=== PATIENT | female | born 1945 | race Caucasian/White ===

== ENCOUNTER 2022-04-09 09:37 | Inpatient (IN) | payer OTHER ==
[~2022-04-09] VITALS: Ht 157.5 cm; Wt 38.5 kg
[2022-04-09 10:03] LABS: BASOPHILS ABSOLUTE AUTO 0.05 K/mm3 (0.00-0.23); BASOPHILS PERCENT AUTO 0 % (0-2); EOSINOPHILS ABSOLUTE AUTO 0.04 K/mm3 (0.00-0.68); EOSINOPHILS PERCENT AUTO 0 % (0-6); Hematocrit 41.9 % (33.0-51.0); IMMATURE GRAN PERCENT AUTO 1 % (0-1); LYMPHOCYTES ABSOLUTE AUTO 1.52 K/mm3 (0.84-5.20); LYMPHOCYTES PERCENT AUTO 9 % (21-46); MONOCYTES ABSOLUTE AUTO 0.99 K/mm3 (0.16-1.47); MONOCYTES PERCENT AUTO 6 % (4-13); Mean Corpuscular HGB 31.3 pg (26.0-34.0); Mean Corpuscular HGB Conc 33.4 g/dL (31.5-36.5); Mean Corpuscular Volume 94 fL (80-100); Mean Platelet Volume 9.9 fL (9.1-12.4); NEUTROPHILS ABSOLUTE AUTO 13.74 K/mm3 (1.96-9.15); NEUTROPHILS PERCENT AUTO 84 % (41-73); Platelet Count 326 K/mm3 (150-400); RDW Coefficient Variation 11.9 % (11.7-14.2); RDW Standard Deviation 41.1 fL (35.1-46.3); Red Blood Cell Count 4.48 M/mm3 (3.80-5.20); White Blood Cell Count 16.44 K/mm3 (4.00-11.30)
[2022-04-09] MEDS ORDERED: DULERA 200 MCG-13 GM INH (10:15)
[2022-04-09] MEDS ORDERED: ROSUVASTATIN CAL5 MG PO (10:16)
[2022-04-09] MEDS ORDERED: MIRT15ST PO (10:16)
[2022-04-09] MEDS ORDERED: SPIRIVA RESPIMAT4 G3 INH (10:16)
[2022-04-09] MEDS ORDERED: COMBIVENT RESPIM4 G1 INH (10:17)
[2022-04-09 10:22] LABS: PCO2 Arterial 66.4 mmHg (35-45); PO2 Arterial 225 mmHg (80-100); pH Blood Arterial 7.24 (7.35-7.45)
[2022-04-09 10:27] LABS: Albumin, Blood 3.2 g/dL (3.4-5.0); Albumin/Globulin Ratio 0.7 (0.8-1.8); Bilirubin, Total 0.4 mg/dL (0.1-1.0); Bun/Creatinine Ratio 45.6 (12.0-20.0); Calcium, Blood 8.4 mg/dL (8.5-10.1); Creatinine, Blood 0.35 mg/dL (0.40-1.00); Globulin, Blood 4.4 g/dL (2.2-4.0); Potassium, Blood 3.4 mmol/L (3.5-5.5); Total Protein, Blood 7.6 g/dL (6.4-8.2)
[2022-04-09 11:08] LABS: Influenza B, PCR NEGATIVE (NEGATIVE); Resp Syncytial Virus, PCR NEGATIVE (NEGATIVE); SARS-Cov-2 (COVID-19) PCR, MMC NEGATIVE (NEGATIVE)
[2022-04-09 11:11] LABS: Influenza A, PCR POSITIVE (NEGATIVE)
[2022-04-09] MEDS ORDERED: CARV3.125 PO (13:39)
[2022-04-09] MEDS ORDERED: CARV6.25 PO (13:39)
--- NOTE | 2022-04-09 14:18 | NUR ---
Call to Dr. De León to inform of elevated d-dimer. CT scan ordered.
--- NOTE | 2022-04-09 14:56 | NUR ---
Oxygen at 2 l/min, spo2 94% while sitting up eating lunch.
[2022-04-09 14:58] LABS: Base Excess Venous -2.4 mmol/L; PCO2 Venous 66.2 mmHg (38-42)
--- NOTE | 2022-04-09 15:06 | NUR ---
TELEPHONED RESULTS OF VBG TO DR FRANCO. WILL PUT PT BACK ON BIPAP WHEN SHE IS DONE EATING. ABG ORDERED FOR 1 HOUR AFTER SHE HAS BEEN ON BIPAP.
[2022-04-09 17:09] LABS: PCO2 Arterial 60.6 mmHg (35-45); PO2 Arterial 81.6 mmHg (80-100); pH Blood Arterial 7.28 (7.35-7.45)
--- NOTE | 2022-04-09 17:15 | NUR ---
Notified Dr De León of the ABG results by phone.
--- NOTE | 2022-04-09 17:42 | NUR ---
Pt is sitting up in bed. Diet order changed to mechanical soft to decrease her work of eating due to compromised respiratory status at this time. At this time she is wearing the bipap, in no distress, and vital signs are stable. I called her niece Yulia to give her an update on the pt's condition.
--- NOTE | 2022-04-09 18:02 | NUR ---
Saranya Oglesby phone number: [phone]
--- NOTE | 2022-04-09 21:26 | NUR ---
ASSUMPTION OF CARE THIS RN ASSUMED CARE OF PT AT 1900, REPORT RECEIVED FROM FATEMEH MENDOSA. PT LYING IN BED IN [place] W/BIPAP MASK IN PLACE SETTINGS AT 14/7, FI02 AT 30%. PT SLEEPING BUT RESPONDING TO VERBAL AND TACTILE STIMULUS. PT APPEARS FRAGILE, PALE AND WEAK. PT ANSWERING QUESTIONS APPROPRIATELY. PT DENIES ANY SOB, CP OR PRESSURE, DENIES ANY GENERAL PAIN AT THIS TIME. PT DOES HAVE AN OCCASSIONAL, LOOSE SOUNDING COUGH, PT DENIES ANY SPUTUM. PT STATES SHE IS "TIRED" BUT DOES NOT EXPRESS ANY OTHER CONCERNS OR NEEDS AT THIS TIME. VS; BP 106/67 (79), ST W/HR OF 105, RR 21, 97.5 F TEMPORAL. VI HOSE IN PLACE. THIS RN TOOK OF BIPAP MASK TO GIVE NIGHT MEDICATIONS, PT REQUESTS TO KEEP IT OFF FOR A LITTLE WHILE. THIS RN WILL PLACE MASK BACK ON BEFORE PT GOES BACK TO SLEEP. PT PLACED ON 2 L O2 VIA NC. CALL LIGHT IN REACH.
--- NOTE | 2022-04-09 22:51 | NUR ---
BIPAP PLACED BACK ON PT, SHE IS READY TO GO TO SLEEP. PT SP02 >96% WHILE ON 2 L NC. PT EXPRESSESS NO NEEDS AT THIS TIME.
[2022-04-10 05:19] LABS: Albumin, Blood 2.6 g/dL (3.4-5.0); Albumin/Globulin Ratio 0.7 (0.8-1.8); Bilirubin, Total 0.4 mg/dL (0.1-1.0); Bun/Creatinine Ratio 37.4 (12.0-20.0); Calcium, Blood 7.5 mg/dL (8.5-10.1); Creatinine, Blood 0.29 mg/dL (0.40-1.00); Globulin, Blood 3.6 g/dL (2.2-4.0); Potassium, Blood 4.2 mmol/L (3.5-5.5); Total Protein, Blood 6.2 g/dL (6.4-8.2)
--- NOTE | 2022-04-10 06:42 | NUR ---
SHIFT SUMMARY NO ACUTE CHANGES FROM ASSUMPTION OF CARE NOTE. VSS THROUGHOUT SHIFT. PT ON BIPAP UNTIL APPROX. 0445 WHEN SHE REQUESTED A BREAK. PT THEN PLACED ON 2 L NC. PT RESTED WELL THROUGHOUT SHIFT. PT UP TO USE BSC W/SBA, VERBAL CUES ONLY. CALL LIGHT IN REACH AND PT USING APPROPRIATELY. WILL UPDATE ONCOMING AM RN.
[2022-04-10 06:55] LABS: BASOPHILS ABSOLUTE AUTO 0.01 K/mm3 (0.00-0.23); BASOPHILS PERCENT AUTO 0 % (0-2); EOSINOPHILS PERCENT AUTO 0 % (0-6); Hemoglobin 12.1 g/dL (11.5-16.0); IMMATURE GRAN ABSOLUTE AUTO 0.04 K/mm3 (0.00-0.10); IMMATURE GRAN PERCENT AUTO 0 % (0-1); LYMPHOCYTES ABSOLUTE AUTO 0.68 K/mm3 (0.84-5.20); LYMPHOCYTES PERCENT AUTO 7 % (21-46); MONOCYTES PERCENT AUTO 2 % (4-13); Mean Corpuscular HGB 30.9 pg (26.0-34.0); Mean Corpuscular HGB Conc 32.7 g/dL (31.5-36.5); Mean Corpuscular Volume 95 fL (80-100); Mean Platelet Volume 10.1 fL (9.1-12.4); NEUTROPHILS ABSOLUTE AUTO 8.57 K/mm3 (1.96-9.15); NEUTROPHILS PERCENT AUTO 90 % (41-73); Platelet Count 285 K/mm3 (150-400); RDW Coefficient Variation 12.2 % (11.7-14.2); RDW Standard Deviation 42.5 fL (35.1-46.3); Red Blood Cell Count 3.91 M/mm3 (3.80-5.20)
--- NOTE | 2022-04-10 08:07 | NUR ---
Pt sitting up in bed, watching TV. States that she is feeling somewhat better today. Wearing oxygen at 2 l/min. She wore the bipap all night, until about 5 am, per noc shift RN report. VBG pending.
[2022-04-10 08:28] LABS: Base Excess Venous 6.4 mmol/L; Bicarbonate Venous 28.5 mmol/L (24.0-30.0); PCO2 Venous 61.8 mmHg (38-42); pH Blood Venous 7.33 (7.34-7.37)
--- NOTE | 2022-04-10 14:16 | NUR ---
Up to bedside commode, no assistance needed except for holding extra line/tube. She is tolerating the activity very well. Wearing home dose oxygen 2 l/min.
--- NOTE | 2022-04-10 20:34 | NUR ---
ASSUMPTION OF CARE THIS RN ASSUMED CARE OF PATIENT AT 1900. REPORT TAKEN FROM NAVYA WELDON. PATIENT IS ON 2L VIA NC AT THIS TIME WITH SPO2 >92%. PATIENT REPORTS SOB WITH COUGHING. PRODUCTIVE COUGH NOTED. BIPAP ON STANDBY IN ROOM. PATIENT WITH DIMINISHED LS THROUGHOUT WITH EXPIRATORY WHEEZES NOTED. BP STABLE. SINUS TACH WITH HR 90-110S DEPENDENT ON MOVEMENT. AFEBRILE. IV SALINE LOCKED. PATIENT IS ALERT AND ORIENTED FULLY. PATIENT IS ABLE TO MAKE NEEDS KNOWN AND INDEPENDENT WITH ADL'S. COMPRESSION STOCKINGS ON BILATERAL CALVES. PATIENT IS ABLE TO REPOSITION SELF IN BED INDEPENDENTLY. SEE ASSESSMENT. BED IN LOWEST POSITION AND CALL LIGHT WITHIN REACH. THIS RN WILL REVIEW CHART AND CONTINUE TO MONITOR AND PROVIDE INTERVENTION NEEDED/ORDERED.
--- NOTE | 2022-04-10 23:14 | NUR ---
PATIENT UPDATE PATIENT UP TO COMMODE AT 2100. BACK TO BED AT 2130. DURING THIS ACTIVITY HR SUSTAINING ABOUT 145 WITH OCCASIONAL SPIKES TO 150-160'S WITH INCREASED MOVEMENT. PATIENT PUT ON BIPAP AROUND 2144. PATIENT APPEARED TO BE RESTING COMFORTABLY AROUND 2200 WITH HR REMAINING IN THE 140'S. HR CONTINUED TO SUSTAIN IN THE 140 APPEARING SINUS TACH ON THE MONITOR. OTHER VITALS STABLE. PATIENT DENIED DISCOMFORT AND DID NOT APPEAR IN DISTRESS. PRN EKG ACQUIRED TO ENSURE NO RHYTHM CHANGE; EKG CONFIRMED SINUS TACH IN THE 140'S. MD NOTIFIED WITH ORDERS TO CONTINUE TO MONITOR PATIENT AT THIS TIME. AT TIME OF WRITING THIS NOTE PATIENT'S HR CONTINUES TO BE IN THE LOW 130'S DESPITE PATIENT APPEARING TO BE SLEEPING. BP STABLE. BP CUFF LEFT AND PATIENT AND CYCLING EVERY HOUR. THIS RN WILL CONTINUE TO MONITOR FOR ANY CHANGES IN CONDITION. BED IN LOWEST POSITION AND CALL LIGHT WITHIN REACH.
--- NOTE | 2022-04-11 04:55 | NUR ---
SHIFT SUMMARY PATIENT CONTINUE TO BE IN SINUS TACH WITH HR 130'S. AWARE. THIS RN AND PHOTOGRAPHER FINISH VIVIANA NOTED THAT THE PATIENT TAKES CARVEDILOL BID AND HAS NOT BEEN GETTING NORMAL HOME MEDICATION. CALL PLACED TO MD GUIDO AGAIN AT 0400 DUE TO THIS FINDING AND CONTINUED HR SUSTAINING IN THE 130S. SEE PREVIOUS NOTE FOR FURTHER DETAIL ABOUT HR CHANGE DURING THIS SHIFT. MD WITH ORDERS FOR ONE TIME DOSE OF CARVEDILOL. BP 130/90 AT TIME OF ADMINISTRATION. NO FURTHER ACUTE CHANGES DURING THIS SHIFT. PATIENT WORE BIPAP UNTIL 0230 THIS MORNING. PATIENT ON 0-2L TO MAINTAIN SPO2 >92%. PATIENT'S RESPIRATORY RATE 18-22 DURING THIS SHIFT. PATIENT IS INDPENDENT TO BSC AND ONLY REQUIRES HELP WITH COMMODE SET UP. PATIENT IS ABLE TO REPOSITION SELF INDEPENDENTLY IN BED. SEE ASSESSMENT. BED IN LOWEST POSITION AND CALL LIGHT WITHIN REACH. THIS RN WILL CONTINUE TO MONITOR PATIENT UNTIL SHIFT CHANGE AT 0700.
[2022-04-11 06:17] LABS: BASOPHILS ABSOLUTE AUTO 0.02 K/mm3 (0.00-0.23); BASOPHILS PERCENT AUTO 0 % (0-2); EOSINOPHILS PERCENT AUTO 0 % (0-6); Hematocrit 35.3 % (33.0-51.0); Hemoglobin 11.6 g/dL (11.5-16.0); IMMATURE GRAN PERCENT AUTO 1 % (0-1); LYMPHOCYTES PERCENT AUTO 6 % (21-46); MONOCYTES ABSOLUTE AUTO 0.47 K/mm3 (0.16-1.47); MONOCYTES PERCENT AUTO 4 % (4-13); Mean Corpuscular HGB 31.1 pg (26.0-34.0); Mean Corpuscular HGB Conc 32.9 g/dL (31.5-36.5); Mean Corpuscular Volume 95 fL (80-100); Mean Platelet Volume 9.9 fL (9.1-12.4); NEUTROPHILS ABSOLUTE AUTO 12.02 K/mm3 (1.96-9.15); NEUTROPHILS PERCENT AUTO 90 % (41-73); Platelet Count 309 K/mm3 (150-400); RDW Coefficient Variation 12.2 % (11.7-14.2); RDW Standard Deviation 42.5 fL (35.1-46.3); Red Blood Cell Count 3.73 M/mm3 (3.80-5.20); White Blood Cell Count 13.41 K/mm3 (4.00-11.30)
[2022-04-11 06:43] LABS: Bun/Creatinine Ratio 38.3 (12.0-20.0); Calcium, Blood 7.8 mg/dL (8.5-10.1); Creatinine, Blood 0.26 mg/dL (0.40-1.00); Potassium, Blood 3.3 mmol/L (3.5-5.5)
--- NOTE | 2022-04-11 16:18 | NUR ---
END OF SHIFT: ALERT AND ORIENTED, PLEASANT, ABLE TO MAKE NEEDS KNOWN. DENIES CHEST PAIN PRESSURE OR SOB AT REST. SOME EXERTIONAL DYSPNEA. SCHEDULED NEB TREATMENTS. CONTINENT, POOR ORAL INTAKE, IMPROVING. ON BASELINE O2. BIPAP AT HS. USES APPROPRIATELY. COTICOSTEROID SWITCHED TO ORAL, CARVEDILOL IN PLACE BID. WILL CONTINUE TO MONITOR UNTIL SHIFT CHANGE. NO CONCERNS FROM THIS RN AT THIS TIME.
--- NOTE | 2022-04-11 22:53 | NUR ---
ASSUMPTION OF CARE THIS RN ASSUMED CARE OF PATIENT AT 1900. REPORT TAKEN FROM PEDRO WELDON. PATIENT ON 2L VIA NC WITH SPO2 >92%. RR 18-20. BP STABLE. SINUS TACH NOTED IN THE 130'S AT TIME OF SHIFT CHANGE. PATIENT RECEIVED 500ML BOLUS, AND IS NOW RECEIVING 1L NS PER EMAR AT 150MLS/HR. PATIENT IS NOW IN NSR WTIH HR 80-90'S AT TIME OF WRITING THIS NOTE. BP REMAINS STABLE. PATIENT DENIES CHEST PAIN/PRESSURE BUT REPORTS FATIGUE AND WANTING TO BE LEFT ALONE TO SLEEP. PATIENT IS ALERT AND ORIENTED FULLY AND ABLE TO MAKE NEEDS KNOWN. BED IN LOWEST POSITION AND CALL LIGHT WITHIN REACH. THIS RN WILL CONTINUE TO MONITOR AND PROVIDE INTERVENTIONS NEEDED/ORDERED DURING THIS SHIFT.
--- NOTE | 2022-04-12 04:57 | NUR ---
SHIFT SUMMARY NO ACUTE CHANGES OVERNIGHT. THIS RN IS TITRATING O2 TO MAINTAIN SATS BETWEEN 90-96% DUE TO COPD. PATIENT HAS BEEN ON 0-2L OF O2 DURING THIS SHIFT. BP STABLE. NSR WITH HR 70-80'S AT THIS TIME. PATIENT FINISHED BOLUS AND 1L OF FLUIDS PER EMAR. PATIENT'S HR IMPROVED AFTER ABOUT 600MLS OF THE FLUID. PATIENT DENIES CHEST PAIN/PRESSURE. BIPAP ON STANDBY IN ROOM. PATIENT IS MORE FATIGUED DURING THIS SHIFT THAN PREVIOUS NIGHT WITH THIS RN. PATIENT CONTINUES TO BE ORIENTED FULLY AND APPROPRIATE, BUT DID STATE THAT SHE IS "JUST TIRED TONIGHT". PATIENT DENIES SOB THROUGHOUT THE SHIFT. ABLE TO REPOSITION SELF IN BED INDEPENDENTLY. BED IN LOWEST POSITION AND CALL LIGHT WTIHIN REACH. THIS RN WILL CONTINUE TO MONITOR UNTIL SHIFT CHANGE AT 0700.
[2022-04-12 06:22] LABS: BASOPHILS ABSOLUTE AUTO 0.02 K/mm3 (0.00-0.23); BASOPHILS PERCENT AUTO 0 % (0-2); EOSINOPHILS PERCENT AUTO 0 % (0-6); Hematocrit 34.7 % (33.0-51.0); Hemoglobin 11.2 g/dL (11.5-16.0); IMMATURE GRAN ABSOLUTE AUTO 0.13 K/mm3 (0.00-0.10); IMMATURE GRAN PERCENT AUTO 1 % (0-1); LYMPHOCYTES ABSOLUTE AUTO 1.38 K/mm3 (0.84-5.20); LYMPHOCYTES PERCENT AUTO 9 % (21-46); MONOCYTES ABSOLUTE AUTO 0.96 K/mm3 (0.16-1.47); MONOCYTES PERCENT AUTO 7 % (4-13); Mean Corpuscular HGB 31.3 pg (26.0-34.0); Mean Corpuscular HGB Conc 32.3 g/dL (31.5-36.5); Mean Corpuscular Volume 97 fL (80-100); Mean Platelet Volume 9.6 fL (9.1-12.4); NEUTROPHILS ABSOLUTE AUTO 12.21 K/mm3 (1.96-9.15); NEUTROPHILS PERCENT AUTO 83 % (41-73); Platelet Count 320 K/mm3 (150-400); RDW Coefficient Variation 12.2 % (11.7-14.2); Red Blood Cell Count 3.58 M/mm3 (3.80-5.20)
[2022-04-12 06:52] LABS: Alanine Aminotransfer (ALT/SGP 36 U/L (12-78); Albumin, Blood 2.5 g/dL (3.4-5.0); Albumin/Globulin Ratio 0.8 (0.8-1.8); Alk Phos 58 U/L (50-136); Anion Gap Unable to Calculate mmol/L (6-16); Aspartate Aminotrans (AST/SGOT 32 U/L (12-37); Bilirubin, Total 0.3 mg/dL (0.1-1.0); Blood Urea Nitrogen 14 mg/dL (8-24); Bun/Creatinine Ratio 42.8 (12.0-20.0); CO2, Blood 40 mmol/L (21-32); Calcium, Blood 7.4 mg/dL (8.5-10.1); Chloride, Blood 108 mmol/L (98-108); Creatinine, Blood 0.33 mg/dL (0.40-1.00); Globulin, Blood 3.3 g/dL (2.2-4.0); Glomerular Filtration Rate 109 (60-); Glucose, Blood 115 mg/dL (70-99); Potassium, Blood 3.2 mmol/L (3.5-5.5); Sodium, Blood 147 mmol/L (136-145); Total Protein, Blood 5.8 g/dL (6.4-8.2)
--- NOTE | 2022-04-12 12:22 | NUR ---
UPDATE: PATIENT KUSUM SITTING ON 1L VIA NC, PROVIDER INFORMED DISCHARGE TODAY. PATIENT HAS BEEN IN A <100 HR FOR MOST OF THE DAY. PATIENT HAS BEEN CHEST PAIN FREE. PLEASANT AND ABLE TO MAKE NEEDS KNOWN, AWAITING DC ORDERS.
[2022-04-12] MEDS ORDERED: AZIT250 PO (13:50)
[2022-04-12] MEDS ORDERED: CEFP200 PO (13:51)
[2022-04-12] MEDS ORDERED: OSEL12SU2 PO (13:52)
[2022-04-12] MEDS ORDERED: Prednisone10 MG PO (13:53)
[2022-04-12] MEDS ORDERED: VISBIOME 112.51 EACH PO (13:56)
--- NOTE | 2022-04-12 15:56 | NUR ---
DISHCARGE SUMMARY: PATIENT WAS EDUCATED ON DISCHARGE INSTRUCTIONS WITH COMPLETE UNDERSTANDING AND NO QUESTIONS COMMENTS OR CONCERNS. PATIENT DENIES CHEST PAIN SOB, IS ALERT AND ORIENTED. IS ON LESS THAN BASELINE O2 OF 1L TURNED TO 2 SHE IS NOT BEING MONITORED ON RIDE HOME. PATIENT IN NO SIGN OF ACUTE DISTRESS. WILL OPERATIONS ASST AND START MEDICATIONS TOMORROW. PROVIDER AWARE OF PHARMACY ISSUES. PATIENT HAS BEEN PLEASANT WAS WHEELED DOWN BY THIS EMT I/85 WITH ALL PERSONAL BELONGINGS AND V60 RETURNED TO RT. IV AND TELE REMOVED. NO CONCERNS FROM THIS EMT I/85 IN REGARD TO DISCHARGE. PATIENT IN AGREEANCE WITH WITH DISCHARGE PLAN.
== END 2022-04-12 15:00 | disposition home or self-care (01) | DRG 871 ==
LOC: ER 09:37 → PCU 11:52
PROVIDERS: Physician Assistant; ADMIT Internal Medicine
PROC: 3E03329 Introduction of Other Anti-infective into Peripheral Vein, Percutaneous Approach (ICD-10-PCS; principal; 2022-04-09)
PROC: 5A09357 Assistance with Respiratory Ventilation, Less than 24 Consecutive Hours, Continuous Positive Airway Pressure (ICD-10-PCS; 2022-04-09)
DX: A41.9 Sepsis, unspecified organism (principal); J10.00 Influenza due to other identified influenza virus with unspecified type of pneumonia; J96.02 Acute respiratory failure with hypercapnia; J96.21 Acute and chronic respiratory failure with hypoxia; J98.11 Atelectasis; Z68.1 Body mass index [BMI] 19.9 or less, adult; E78.5 Hyperlipidemia, unspecified; M81.0 Age-related osteoporosis without current pathological fracture; J43.9 Emphysema, unspecified; R63.6 Underweight; I25.10 Atherosclerotic heart disease of native coronary artery without angina pectoris; Z20.822 Contact with and (suspected) exposure to COVID-19; Z88.5 Allergy status to narcotic agent; Z88.8 Allergy status to other drugs, medicaments and biological substances; Z99.81 Dependence on supplemental oxygen; Z79.899 Other long term (current) drug therapy; Z79.51 Long term (current) use of inhaled steroids; Z98.890 Other specified postprocedural states; Z98.84 Bariatric surgery status; Z90.710 Acquired absence of both cervix and uterus; Z90.49 Acquired absence of other specified parts of digestive tract; Z87.891 Personal history of nicotine dependence
CPT/HCPCS: 0241U; 36415; 36600; 71045; 71260; 80048; 80053; 82803; 83605; 83735; 83880; 84145; 84484; 85025; 85379; 93005; 93010; 94640; 94660; 94664; 94760; 94761; 94762; 97162; 97530; A9270; J0456; J0696; J1650; J2930; J7030; J7040; J7050; J7512; Q9967

== ENCOUNTER 2022-04-14 08:27 | Inpatient (IN) | payer OTHER ==
[~2022-04-14] VITALS: Ht 162.6 cm; Wt 35.5 kg
[~2022-04-14 08:27] MED LIST: AZIT250 PO; CARV3.125 PO; CARV6.25 PO; CEFP200 PO; COMBIVENT RESPIM4 G1 INH; DULERA 200 MCG-13 GM INH; MIRT15ST PO; OSEL12SU2 PO; Prednisone10 MG PO; ROSUVASTATIN CAL5 MG PO; SPIRIVA RESPIMAT4 G3 INH; VISBIOME 112.51 EACH PO
[2022-04-14 08:44] LABS: BASOPHILS ABSOLUTE AUTO 0.03 K/mm3 (0.00-0.23); BASOPHILS PERCENT AUTO 0 % (0-2); EOSINOPHILS ABSOLUTE AUTO 0.02 K/mm3 (0.00-0.68); EOSINOPHILS PERCENT AUTO 0 % (0-6); Hematocrit 44.4 % (33.0-51.0); Hemoglobin 14.4 g/dL (11.5-16.0); IMMATURE GRAN ABSOLUTE AUTO 0.15 K/mm3 (0.00-0.10); IMMATURE GRAN PERCENT AUTO 1 % (0-1); LYMPHOCYTES ABSOLUTE AUTO 2.68 K/mm3 (0.84-5.20); LYMPHOCYTES PERCENT AUTO 15 % (21-46); MONOCYTES ABSOLUTE AUTO 1.44 K/mm3 (0.16-1.47); MONOCYTES PERCENT AUTO 8 % (4-13); Mean Corpuscular HGB 30.8 pg (26.0-34.0); Mean Corpuscular HGB Conc 32.4 g/dL (31.5-36.5); Mean Corpuscular Volume 95 fL (80-100); Mean Platelet Volume 9.5 fL (9.1-12.4); NEUTROPHILS ABSOLUTE AUTO 13.76 K/mm3 (1.96-9.15); NEUTROPHILS PERCENT AUTO 76 % (41-73); Platelet Count 467 K/mm3 (150-400); RDW Coefficient Variation 11.6 % (11.7-14.2); RDW Standard Deviation 40.8 fL (35.1-46.3); Red Blood Cell Count 4.67 M/mm3 (3.80-5.20); White Blood Cell Count 18.08 K/mm3 (4.00-11.30)
[2022-04-14 09:04] LABS: Albumin, Blood 3.3 g/dL (3.4-5.0); Albumin/Globulin Ratio 0.9 (0.8-1.8); Bilirubin, Total 0.7 mg/dL (0.1-1.0); Bun/Creatinine Ratio 62.3 (12.0-20.0); Calcium, Blood 8.8 mg/dL (8.5-10.1); Creatinine, Blood 0.37 mg/dL (0.40-1.00); Globulin, Blood 3.8 g/dL (2.2-4.0); Magnesium, Blood 1.9 mg/dL (1.6-2.4); Potassium, Blood 3.4 mmol/L (3.5-5.5); Total Protein, Blood 7.1 g/dL (6.4-8.2)
[2022-04-14 09:10] LABS: Base Excess Venous 11.1 mmol/L; Bicarbonate Venous 30.9 mmol/L (24.0-30.0); pH Blood Venous 7.37 (7.34-7.37)
[2022-04-14 09:26] LABS: Influenza B, PCR NEGATIVE (NEGATIVE); Resp Syncytial Virus, PCR NEGATIVE (NEGATIVE); SARS-Cov-2 (COVID-19) PCR, MMC NEGATIVE (NEGATIVE)
[2022-04-14 09:34] LABS: Influenza A, PCR POSITIVE (NEGATIVE)
[2022-04-14] MEDS ORDERED: CARVEDILOL3.125 MG PO (14:35)
[2022-04-14] MEDS ORDERED: COMBIVENT RESPIMAT INH (14:36)
[2022-04-14] MEDS ORDERED: MIRTAZAPINE7.5 M1 PO (14:37)
[2022-04-14] MEDS ORDERED: DULERA INH (14:39)
[2022-04-14] MEDS ORDERED: ROSU5 PO (14:40)
[2022-04-14] MEDS ORDERED: TERB250 PO (14:41)
[2022-04-14] MEDS ORDERED: TIOT18 INH (14:42)
[2022-04-14 15:49] LABS: Base Excess Venous 6.3 mmol/L; Bicarbonate Venous 28.8 mmol/L (24.0-30.0); PCO2 Venous 57.4 mmHg (38-42); pH Blood Venous 7.35 (7.34-7.37)
--- NOTE | 2022-04-14 19:15 | NUR ---
ASSUMED CARE OF PT @1900 FROM BONIFACIO WELDON. PT ON 4L 02 VIA RI. RR 18, SPO2 >92%. PT CONFUSED AND TRYING WEAKLY TO GET LEGS OVER EDGE OF BED. REDIRECTABLE. CONTINUOUS CARDIAC MONITORING. ST IN THE 140'S, SBP 110-115. ATTENDS IN PLACE. SCD'S IN PLACE.
--- NOTE | 2022-04-14 20:18 | NUR ---
CALL TO DONA RETURNED CALL TO DONA REGARDING PT AND PROVIDED UPDATE. DONA GAVE INFORMATION THAT HE HAD BEEN IN CONTACT WITH THE PATIENTS DAUGHTER IN [place] WHO STATED THAT IF HER MOM WERE TO PASS, MARCOS WAS VERY SUPPORTIVE OF ORGAN DONATION AND WOULD LIKE TO BE A CANDIDATE IF APPROPRIATE. ALSO CODE STATUS WAS CLARIFIED. THE ORDER STATES THAT MARCOS IS A DNR BUT WHILE READING NOTES STATES THAT IF NEEDED, THE PATIENT WOULD WANT TO BE INTUBATED. DONA CONFIRMED THAT CODE STATUS IS LIMITED WITH ONLY INTUBATION APPROVED.
--- NOTE | 2022-04-14 23:23 | NUR ---
UPDATE BREAK OFF OF BIPAP TAKEN WHEN PT NEEDED TO USE THE BED WOODY AND PLACED ON 5L NC. DURING EXERTION SPO2 DROPPED TO 85% AND SLOWLY RECOVERED TO 90%; PT IS VERY WEAK BUT WAS ABLE TO LIFT HER HIPS UP WITHOUT ASSISTANCE. AFTER BEDPAN, BIPAP MASK PLACED BACK ON AND GECKO NOSE CUSION PLACED ON BRIDGE OF NOSE. PT CONT TO SIT ALL THE WAY FORWARD IN TRIPOD LIKE POSITION WITH BIPAP MASK ON BUT APPEARS TO BE BREATHING BETTER, RR DECREASED AND SPO2 AT 95%, PT NOT IN DISTRESS. WILL CONT TO MONITOR.
[2022-04-15 03:51] LABS: BASOPHILS ABSOLUTE AUTO 0.02 K/mm3 (0.00-0.23); BASOPHILS PERCENT AUTO 0 % (0-2); EOSINOPHILS PERCENT AUTO 1 % (0-6); Hematocrit 40.4 % (33.0-51.0); Hemoglobin 13.3 g/dL (11.5-16.0); IMMATURE GRAN ABSOLUTE AUTO 0.11 K/mm3 (0.00-0.10); IMMATURE GRAN PERCENT AUTO 1 % (0-1); LYMPHOCYTES PERCENT AUTO 11 % (21-46); MONOCYTES ABSOLUTE AUTO 0.99 K/mm3 (0.16-1.47); MONOCYTES PERCENT AUTO 6 % (4-13); Mean Corpuscular HGB 31.1 pg (26.0-34.0); Mean Corpuscular HGB Conc 32.9 g/dL (31.5-36.5); Mean Corpuscular Volume 94 fL (80-100); Mean Platelet Volume 9.6 fL (9.1-12.4); NEUTROPHILS ABSOLUTE AUTO 14.84 K/mm3 (1.96-9.15); NEUTROPHILS PERCENT AUTO 83 % (41-73); Platelet Count 418 K/mm3 (150-400); RDW Coefficient Variation 11.8 % (11.7-14.2); RDW Standard Deviation 40.4 fL (35.1-46.3); Red Blood Cell Count 4.28 M/mm3 (3.80-5.20); White Blood Cell Count 17.96 K/mm3 (4.00-11.30)
[2022-04-15 04:19] LABS: Bun/Creatinine Ratio 70.7 (12.0-20.0); Calcium, Blood 8.4 mg/dL (8.5-10.1); Creatinine, Blood 0.31 mg/dL (0.40-1.00); Potassium, Blood 3.3 mmol/L (3.5-5.5)
--- NOTE | 2022-04-15 05:30 | NUR ---
UPDATE TRIED TO CALL DR. GUIDO RE: POTASSIUM OF 3.3 @0500 AND 0530 W/NO ANSWER. WILL REPORT TO ONCOMING DAYSHIFT RN.
--- NOTE | 2022-04-15 06:33 | NUR ---
SUMMARY NO ACUTE EVENTS OVERNIGHT. PT TOLERATED BIPAP THROUGHOUT SHIFT. SWITCHED TO NC BRIEFLY TO TRANSITION PT TO BEDPAN TO URINATE. PT BECOMES SOB AND O2 SATS DROP INTO THE 80'S LOW 90'S. HR DECREASED TO HIGH 90'S LOW 100'S, BP STABLE. ORIENTATION REMAINS ONLY TO SELF BUT PT SEEMED MORE ALERT AND FOLLOWED COMMANDS THE NIGHT PROGRESSED. 20GA LFA PATENT W/SALINE LOCK.
--- NOTE | 2022-04-15 07:15 | NUR ---
ASSUMED CARE TO PT ROOM FOR BED ALARM. PT. NEEDING TO URGENTLY USE THE BED WOODY. PT. REDIRECTABLE AT THIS TIME, ABLE TO ASSIST WITH BED WOODY. PT RR IN HIGH 30S WHEN AWAKE, WITH ONLY ONE WORD ANSWERS AT THIS TIME. PT. REMAINS ON BIPAP 01/21, 30%, HOWEVER WITH MOVEMENT IN BED FIO2 INCREASED TO 60% DUE TO PT SPO2 DROPPING TO MID 80S. HOWEVER DID RECOVER WITH FIO2 INCREASE, TITRATED DOWN WITH REST. PT. RR AROUND 30 AT REST. HR IN THE 150S THIS AM. DECREASED LS WITH AUSCULTATION. CALL TO DR. MUSE TO UPDATE ON CONDITION. RT NOTIFIED OF ABG ORDER.
--- NOTE | 2022-04-15 08:42 | NUR ---
DR. MUSE TO BEDSIDE PT SITTING UP IN TRIPOD POSITION IN BED. ABLE TO ANSWER QUESTIONS AT THIS TIME. CODE STATUS ADDRESSED BY DR. MUSE, PT TO BE CHANGED TO DNR AT THIS TIME. PLANS FOR ABG, RT NOTIFIED. PT. HAS PAD ALARM IN PLACE. ASSISTED PT TO USE BED WOODY. CURRENTLY HAVING A BREAK FROM BIPAP ON 4LNC.
[2022-04-15 09:07] LABS: PCO2 Arterial 60.4 mmHg (35-45); PO2 Arterial 95.8 mmHg (80-100); pH Blood Arterial 7.39 (7.35-7.45)
--- NOTE | 2022-04-15 14:42 | NUR ---
BREAK FROM BIPAP, ORAL CARE COMPLETED AND SWABBED WITH WATER. PT. CONTINUES TO BE SOB EVEN AT REST AND STRUGGLES TO ANSWER IN MORE THAN ONE TO TWO WORDS. NOSE BECOMING RED, DESPITE GEL PAD FOR PROTECTION ON BRIDGE OF NOSE. PT CONTINUES TO SIT IN TRIPOD POSITION IN BED, ABLE TO SHIFT WEIGHT FOR COMFORT. CALL LIGHT AND PAD ALARM IN PLACE BECAUSE PT DOES SPONT. TRY TO GET OOB IF SHE HAS TO GO TO THE BATHROOM. REORIENTED TO CALL LIGHT AND OFFERED BED WOODY FREQUENTLY WHILE ROUNDING.
--- NOTE | 2022-04-15 15:20 | NUR ---
UPDATED PT DAUGHTER PER PT REQUEST.
--- NOTE | 2022-04-15 16:50 | NUR ---
PT. IMPROVING DAY GOES ON O2 TITRATED DOWN TO 3LNC, PT. DOES BECOME SOB WITH EXCERTION BUT IS MORE ALERT AND DOES RECOVER USING ONLY THE NC. TOLERATING SIPS OF WATER WELL THIS PM. VSS AT THIS TIME. ASSISTED FREQUENTLY TO USE BEDPAN, PT ABLE TO ASSIST.
--- NOTE | 2022-04-15 17:44 | NUR ---
SHIFT SUMMARY PT MORE ALERT T/O SHIFT. ABLE TO REPOSITION SELF IN BED FOR COMFORT AND PRESSURE RELIEF. CURRENTLY ON 3LNC, BIPAP REMAINS AT BEDSIDE IF NEEDED. PT. DENIES PAIN AT THIS TIME. PT RR STATUS IMPROVING, CONTINUES TO BECOME SOB WITH EXCERTION HOWEVER AT REST RR DECREASED TO MID 20S. PT TOLERATING SMALL SIPS OF WATER, ATTEMPTED TO GIVE PT PO PILLS THIS PM HOWEVER PT REFUSED, REPORTING SHE DIDNT FEEL "READY" TO TAKE THEM. NEW IV STARTED TO RFA. CALL LIGHT IN REACH. VSS AT THIS TIME, REPORT TO ONCOMING RN.
--- NOTE | 2022-04-15 20:49 | NUR ---
ASSUMPTION OF CARE THIS RN ASSUMED CARE OF PATIENT AT 1900. REPORT TAKEN FROM KYLEE WELDON. PATIENT LETHARGIC AT TIME OF SHIFT CHANGE AND WAS NOT FOLLOWING DIRECTIONS BY THIS RN AND ONLY MUMBLING YES/NO WITH DIRECT QUESTIONS. PATIENT ON 2L AT THIS TIME VIA NC WITH SPO2 >92%. RR 18. BP STABLE. SINUS TACH ON THE MONITOR WITH HR 100'S. TAB ALARM ON. BIPAP ON STANDBY IN ROOM. AT 2029 PATIENT BECAME MORE ALERT AND CONFUSED AND ATTEMPTED TO GET OUT OF BED DUE TO NEEDING TO USE THE RESTROOM. LIGIA WELDON ATTEMPTED TO HELP THE PATIENT ONTO THE BEDPAN BUT PATIENT WAS NOT FOLLOWING DIRECTIONS WELL AND BECAME TACHYPNEIC REQUIRING 4L VIA NC TO MAINTAIN O2 SATS AND WAS IN TRIPOD POSITION IN BED WHILE USING ACCESSORY MUSCLES. PATIENT'S CONFUSION BEGAN TO CLEAR AND SHE STARTED FOLLOWING COMMANDS. PATIENT REFUSING BIPAP AT THIS TIME. PUREWICK PLACED DUE TO PATIENT'S INCREASED WORK OF BREATHING AND SOB WITH ACTIVITY. PATIENT STATED SHE UNDERSTOOD PUREWICK BUT IS STILL STATING SHE NEEDS TO USE THE BATHROOM. CAMERA ON IN PATIENT'S ROOM FOR BETTER MONITORING. BED IN LOWEST POSITION, CALL LIGHT WITHIN REACH, SIDE RAILS UP, TAB ALARM IN PLACE. THIS RN WILL CONTINUE TO MONITOR CLOSELY FOR SAFETY AND PROVIDE INTERVENTIONS NEEDED/ORDERED.
--- NOTE | 2022-04-16 04:38 | NUR ---
SHIFT SUMMARY PATIENT HAS BEEN LETHARGIC THROUGH THE NIGHT AND REQUIRES EXTRA STIMULUS TO WAKE UP ENOUGH TO TALK. NO FURTHER RESPIRATORY DISTRESS SINCE PREVIOUS NOTE. PATIENT IS ORIENTED FULLY IF SHE WAKES UP COMPLETELY, OTHERWISE SHE NODS AND MUMBLES YES/NO TO QUESTIONS. PATIENT IS FINISHING 1L OF D5W1/2NS WITH POTASSIUM. PATIENT IS REQUIRING MINIMAL ASSISTANCE FOR Q2HR TURNING. MEPIPLEX ON COCCYX C/D/I. PATIENT REQUIRING 2-4L OF O2 VIA NC TO MAINTAIN O2 SATS >92%. CURRENTLY ON 3L. BP STABLE. SR/ST ON THE MONITOR WITH HR 80-110'S. AFEBRILE. BIPAP ON STANDBY; PATIENT REFUSED BIPAP DURING THIS SHIFT. BED IN LOWEST POSITION. TAB ALARM ON. CALL LIGHT WITHIN REACH. PATIENT OCCASIONALLY HAS CALLED APPROPRIATELY BUT HAS BEEN CONFUSED WHEN SHE WAKES UP AT TIMES; SEE PREVIOUS NOTE. SEE ASSESSMENT. THIS RN WILL CONTINUE TO MONITOR AND PROVIDE INTERVENTIONS NEEDED/ORDERED UNTIL SHIFT CHANGE AT 0700.
[2022-04-16 06:20] LABS: BASOPHILS ABSOLUTE AUTO 0.02 K/mm3 (0.00-0.23); BASOPHILS PERCENT AUTO 0 % (0-2); EOSINOPHILS ABSOLUTE AUTO 0.01 K/mm3 (0.00-0.68); EOSINOPHILS PERCENT AUTO 0 % (0-6); Hematocrit 42.6 % (33.0-51.0); Hemoglobin 13.5 g/dL (11.5-16.0); IMMATURE GRAN ABSOLUTE AUTO 0.09 K/mm3 (0.00-0.10); IMMATURE GRAN PERCENT AUTO 1 % (0-1); LYMPHOCYTES ABSOLUTE AUTO 1.02 K/mm3 (0.84-5.20); LYMPHOCYTES PERCENT AUTO 6 % (21-46); MONOCYTES ABSOLUTE AUTO 0.97 K/mm3 (0.16-1.47); MONOCYTES PERCENT AUTO 6 % (4-13); Mean Corpuscular HGB 30.5 pg (26.0-34.0); Mean Corpuscular HGB Conc 31.7 g/dL (31.5-36.5); Mean Corpuscular Volume 96 fL (80-100); NEUTROPHILS ABSOLUTE AUTO 14.99 K/mm3 (1.96-9.15); NEUTROPHILS PERCENT AUTO 88 % (41-73); Platelet Count 417 K/mm3 (150-400); RDW Coefficient Variation 11.8 % (11.7-14.2); RDW Standard Deviation 41.2 fL (35.1-46.3); Red Blood Cell Count 4.42 M/mm3 (3.80-5.20)
[2022-04-16 06:55] LABS: Anion Gap Unable to Calculate mmol/L (6-16); Blood Urea Nitrogen 16 mg/dL (8-24); Bun/Creatinine Ratio 44.4 (12.0-20.0); CO2, Blood 40 mmol/L (21-32); Calcium, Blood 8.9 mg/dL (8.5-10.1); Chloride, Blood 99 mmol/L (98-108); Creatinine, Blood 0.36 mg/dL (0.40-1.00); Glomerular Filtration Rate 106 (60-); Glucose, Blood 180 mg/dL (70-99); Sodium, Blood 138 mmol/L (136-145)
--- NOTE | 2022-04-16 17:49 | NUR ---
END OF SHIFT NOTE PT A&O X3. PT ABLE TO STATE NAME, , PLACE & WHY SHE IS IN THE HOSPITAL. PT STATING DATE "WEDNESDAY" EACH TIME PT ASKED DATE, MONTH & YR. PT VSS. SPO2 > 92% ON 3L, TITRATED TO 2L NC. MONITOR SHOWING SR-ST, HR 80s-110s. 1 EPISODE OF PT HR 130s W/ PT REPORT OF "IT'S BECAUSE OF WHAT I'M WATCHING. HAVE YOU SEEN WHAT'S ON THE NEWS?!" PT ENCOURAGED TO REFRAIN FROM WATCHING NEWS D/T EFFECT ON PT HR. PT AGREEABLE. HR CAME BACK DOWN. PT PASS BEDSIDE SWALLOW EVAL THIS SHIFT. PT ABLE TO SWALLOW PO MEDICATIONS WHOLE W/ WATER & PT TOLERATING REGULAR MEAL TRAYS. PT 1 PERSON ASSIST W/ FWW.
--- NOTE | 2022-04-16 20:15 | NUR ---
ASSUMPTION OF CARE THIS RN ASSUMED CARE OF PATIENT AT 1900. REPORT TAKEN FROM NADJA WELDON. PATIENT LETHARGIC AT BEGINNING OF SHIFT AND ONLY ORIENTED TO SELF. THIS RN WAS ABLE TO ROUSE PATIENT MORE AND ASSISTED TO EAT 25% OF DINNER AND 100% OF ENSURE. PATIENT AT THIS TIME IS ALERT AND ORIENTED X3 WITH CONFSION ABOUT TIME/DATE, STATING THAT "IT'S 1977". PATIENT WITH STABLE VITAL SIGNS. ON 2L VIA NC WITH SPO2 >92%. PATIENT WAS ABLE TO WALK TO BATHROOM WITH GAIT BELT AND WALKER WITH 1 PERSON ASSIST. PATIENT WAS ABLE TO REPOSITION SELF BACK INTO THE BED INDEPENDENTLY. MEPIPLEX C/D/I ON COCCYX. MEDICATED PER EMAR. CAMERA ON IN ROOM FOR SAFETY DUE TO OCCASIONAL CONFUSION. BED IN LOWEST POSITION, CALL LIGHT WITHIN REACH. THIS RN WILL REVIEW CHART AND CONTINUE TO PROVIDE INTERVENTIONS NEEDED/ORDERED.
--- NOTE | 2022-04-17 04:28 | NUR ---
SHIFT SUMMARY PATIENT HAS BEEN ALERT/LETHARGIC AND ORIENTED X1-3 DURING THIS SHIFT DEPENDING ON HOW AWAKE SHE IS. VSS. ON 2L VIA NC WITH SPO2 >92%; 2L IS PATIENT'S BASELINE. PATIENT WITH 2 EPISODES OF DIARRHEA DURING THIS SHIFT. OTHERWISE PATIENT WITH NO OTHER ACUTE EVENTS. PATIENT WAS ABLE TO AMBULATE TO BATHROOM WITH WALKER AND GAITBELT AND 1P ASSIST. CAMERA ON FOR SAFETY D/T PATIENT NOT CALLING APPROPRIATELY FOR ASSISTANCE AND BEING COMPULSIVE. PATIENT WITH NO RESPIRATORY DISTRESS DURING THIS SHIFT DESPITE AMBULATION/ACTIVITY. PATIENT HAS BEEN COOPERATIVE WITH CARE DESPITE CONFUSION. BED IN LOWEST POSITION, BED ALARM ON, CALL LIGHT WITHIN REACH. THIS RN WILL CONTINUE TO MONITOR UNTIL SHIFT CHANGE AT 0700.
[2022-04-17 05:42] LABS: BASOPHILS ABSOLUTE AUTO 0.02 K/mm3 (0.00-0.23); BASOPHILS PERCENT AUTO 0 % (0-2); EOSINOPHILS ABSOLUTE AUTO 0.01 K/mm3 (0.00-0.68); EOSINOPHILS PERCENT AUTO 0 % (0-6); Hematocrit 36.9 % (33.0-51.0); Hemoglobin 11.9 g/dL (11.5-16.0); IMMATURE GRAN ABSOLUTE AUTO 0.08 K/mm3 (0.00-0.10); IMMATURE GRAN PERCENT AUTO 1 % (0-1); LYMPHOCYTES ABSOLUTE AUTO 1.49 K/mm3 (0.84-5.20); LYMPHOCYTES PERCENT AUTO 10 % (21-46); MONOCYTES ABSOLUTE AUTO 1.09 K/mm3 (0.16-1.47); MONOCYTES PERCENT AUTO 7 % (4-13); Mean Corpuscular HGB 31.3 pg (26.0-34.0); Mean Corpuscular HGB Conc 32.2 g/dL (31.5-36.5); Mean Corpuscular Volume 97 fL (80-100); Mean Platelet Volume 10.3 fL (9.1-12.4); NEUTROPHILS PERCENT AUTO 82 % (41-73); Platelet Count 349 K/mm3 (150-400); RDW Coefficient Variation 11.9 % (11.7-14.2); RDW Standard Deviation 42.3 fL (35.1-46.3); White Blood Cell Count 14.69 K/mm3 (4.00-11.30)
[2022-04-17 05:55] LABS: Bun/Creatinine Ratio 67.5 (12.0-20.0); Calcium, Blood 8.6 mg/dL (8.5-10.1); Creatinine, Blood 0.42 mg/dL (0.40-1.00); Magnesium, Blood 2.1 mg/dL (1.6-2.4); Phosphorus, Blood 2.6 mg/dL (2.5-4.9); Potassium, Blood 3.7 mmol/L (3.5-5.5)
[2022-04-17] MEDS ORDERED: PRED20 PO ×2 (15:00→15:01)
[2022-04-17] MEDS ORDERED: ATOR10 PO (15:03)
[2022-04-17] MEDS ORDERED: B-1100 M1 PO (15:05)
--- NOTE | 2022-04-17 17:05 | NUR ---
DISCHARGE HOME PT A&O X4. VSS. SPO2 > 92% ON 2-3L NC. SERGE TO UNIT TO DROP OFF PORTABLE OXYGEN FOR PT D/T FAMILY NOT BRINGING O2 FROM HOME. DISCHARGE INSTRUCTIONS REVIEWED W/ PT & SENT HOME W/ PT. PIV REMOVED. PT TAKEN OUT BY WHEELCHAIR W/ BELONGINGS @ APPROX 1700.
== END 2022-04-17 17:06 | disposition home or self-care (01) | DRG 193 ==
LOC: ER 08:27 → ERHOLD 14:17 → PCU 17:16
PROVIDERS: Student in an Organized Health Care Education/Training Program; ADMIT Family Medicine
PROC: 5A09357 Assistance with Respiratory Ventilation, Less than 24 Consecutive Hours, Continuous Positive Airway Pressure (ICD-10-PCS; principal; 2022-04-14)
DX: J10.1 Influenza due to other identified influenza virus with other respiratory manifestations (principal); J96.21 Acute and chronic respiratory failure with hypoxia; J96.22 Acute and chronic respiratory failure with hypercapnia; J44.1 Chronic obstructive pulmonary disease with (acute) exacerbation; E44.0 Moderate protein-calorie malnutrition; Z68.1 Body mass index [BMI] 19.9 or less, adult; E78.5 Hyperlipidemia, unspecified; Z66 Do not resuscitate; R00.0 Tachycardia, unspecified; I25.10 Atherosclerotic heart disease of native coronary artery without angina pectoris; M81.0 Age-related osteoporosis without current pathological fracture; Z20.822 Contact with and (suspected) exposure to COVID-19; F41.9 Anxiety disorder, unspecified; Z88.5 Allergy status to narcotic agent; Z88.8 Allergy status to other drugs, medicaments and biological substances; Z79.899 Other long term (current) drug therapy; Z79.51 Long term (current) use of inhaled steroids; Z99.81 Dependence on supplemental oxygen; Z79.2 Long term (current) use of antibiotics; Z79.52 Long term (current) use of systemic steroids; Z98.84 Bariatric surgery status; Z90.710 Acquired absence of both cervix and uterus; Z90.49 Acquired absence of other specified parts of digestive tract; Z98.890 Other specified postprocedural states; Z87.891 Personal history of nicotine dependence
CPT/HCPCS: 0241U; 36415; 36600; 71045; 80048; 80053; 82803; 82947; 83735; 83880; 84100; 84145; 85025; 93005; 93010; 94640; 94644; 94660; 94664; 94762; 96361; 96365; 96366; 96375; 96376; 97110; 97116; 97162; 97165; 97535; 99291-25; A9270; J1650; J2060; J2930; J3480; J7030

== ENCOUNTER 2022-05-04 06:31 | Inpatient (IN) | payer OTHER ==
[~2022-05-04] VITALS: Ht 152.4 cm; Wt 45.4 kg
[~2022-05-04 06:31] MED LIST changes: +ATOR10 PO; +B-1100 M1 PO; +CARVEDILOL3.125 MG PO; +COMBIVENT RESPIMAT INH; +MIRTAZAPINE7.5 M1 PO; +PRED20 PO; +ROSU5 PO; +TERB250 PO; +TIOT18 INH
[2022-05-04 07:55] LABS: BASOPHILS ABSOLUTE AUTO 0.04 K/mm3 (0.00-0.23); BASOPHILS PERCENT AUTO 1 % (0-2); EOSINOPHILS ABSOLUTE AUTO 0.21 K/mm3 (0.00-0.68); EOSINOPHILS PERCENT AUTO 3 % (0-6); Hematocrit 35.4 % (33.0-51.0); Hemoglobin 11.2 g/dL (11.5-16.0); IMMATURE GRAN ABSOLUTE AUTO 0.02 K/mm3 (0.00-0.10); IMMATURE GRAN PERCENT AUTO 0 % (0-1); LYMPHOCYTES ABSOLUTE AUTO 1.28 K/mm3 (0.84-5.20); LYMPHOCYTES PERCENT AUTO 19 % (21-46); MONOCYTES ABSOLUTE AUTO 0.53 K/mm3 (0.16-1.47); MONOCYTES PERCENT AUTO 8 % (4-13); Mean Corpuscular HGB 31.3 pg (26.0-34.0); Mean Corpuscular HGB Conc 31.6 g/dL (31.5-36.5); Mean Corpuscular Volume 99 fL (80-100); Mean Platelet Volume 10.4 fL (9.1-12.4); NEUTROPHILS ABSOLUTE AUTO 4.72 K/mm3 (1.96-9.15); NEUTROPHILS PERCENT AUTO 69 % (41-73); Platelet Count 263 K/mm3 (150-400); RDW Coefficient Variation 12.7 % (11.7-14.2); RDW Standard Deviation 45.8 fL (35.1-46.3); Red Blood Cell Count 3.58 M/mm3 (3.80-5.20)
[2022-05-04 08:06] LABS: Albumin, Blood 2.9 g/dL (3.4-5.0); Albumin/Globulin Ratio 0.9 (0.8-1.8); Bilirubin, Total 0.2 mg/dL (0.1-1.0); Bun/Creatinine Ratio 56.3 (12.0-20.0); Calcium, Blood 8.6 mg/dL (8.5-10.1); Creatinine, Blood 0.39 mg/dL (0.40-1.00); Globulin, Blood 3.1 g/dL (2.2-4.0)
[2022-05-04 08:26] LABS: Source, Urine Foley catheter
[2022-05-04 08:36] LABS: International Normalized Ratio 0.98; Prothrombin Time Results 10.3 Sec (9.7-11.5)
[2022-05-04 08:37] LABS: Bilirubin, Urine Neg (Neg); Blood, Urine Neg (Neg); Glucose Qualitative, Urine Neg (Neg); Ketones, Urine Neg (Neg); Leukocyte Esterase, Urine Neg (Neg); Nitrite, Urine Neg (Neg); Protein, Urine Neg (Neg); Urobilinogen, Urine NORM (Normal)
[2022-05-04] MEDS ORDERED: DULERA 100 MCG/13 GM INH (08:50)
[2022-05-04 08:51] LABS: Appearance, Urine Hazy (Clear); Color, Urine Yellow (P-Yellow)
[2022-05-04 08:52] LABS: Amorphous Mod (0-Heavy); Bacteria Not Seen /hpf; Mucus Light (0-Heavy); Red Blood Cells, Urine Not Seen /hpf (0-2); Squamous Epithelial Cells Not Seen /hpf (Few); White Blood Cells, Urine Not Seen /hpf (0-5)
[2022-05-04] MEDS ORDERED: SPIRIVA RESPIMAT4 G3 INH (10:40)
[2022-05-04 12:21] LABS: Source, Urine Clean Catch
[2022-05-04 12:27] LABS: Bilirubin, Urine Neg (Neg); Blood, Urine 1+ (Neg); Glucose Qualitative, Urine Neg (Neg); Ketones, Urine 2+ (Neg); Leukocyte Esterase, Urine Neg (Neg); Nitrite, Urine Neg (Neg); Protein, Urine Neg (Neg); Specific Gravity, Urine 1.015 (1.003-1.022); Urobilinogen, Urine NORM (Normal)
[2022-05-04 12:39] LABS: Appearance, Urine Hazy (Clear); Color, Urine Yellow (P-Yellow)
[2022-05-04 12:40] LABS: Amorphous Mod (0-Heavy); Bacteria Not Seen /hpf; Calcium Oxalate Crystals Few /hpf; Red Blood Cells, Urine 0-2 /hpf (0-2); Squamous Epithelial Cells Not Seen /hpf (Few); White Blood Cells, Urine Not Seen /hpf (0-5)
--- NOTE | 2022-05-04 15:21 | NUR ---
PATIENT INTO SDS. PIV TO LWRIST PATENT. History, Chart, Medications and Allergies reviewed before start of procedure.Patient confirms NPO status and agrees with scheduled surgery. EKG DONE PER ANETHESIA.
--- NOTE | 2022-05-04 19:28 | NUR ---
SHIFT SUMMARY PATIENT NEW ADMIT TO UNIT FROM ER FOR R HIP FX. ARRIVED TO UNIT ALERT AND ORIENTED ALTHOUGH SOMEWHAT FORGETFUL DURING ADMISSION. PATIENT GENERALLY FRAIL AND DECONDITIONED AND UNDERWEIGHT. BASELINE 3L O2 VIA NC FOR HX COPD, CHRONIC HYPOXIC RESP FAILURE, AND EMPHYSEMA. RIGHT HIP PAINFUL AND R FOOT EXTERNALLY ROTATED. REPORTED PAINFUL R HIP SPASMS. MANSFIELD IN PLACE ON ARRIVAL. MEDICATED FOR PAIN PER EMAR. PLAN WAS TO TAKE PATIENT TO OR THIS AFTERNOON BUT CANCELLED DUE TO TACHY HR OF 120. PATIENT RETURNED TO ROOM FROM DAY SURGERY. PROVIDED WITH PO LIQUIDS AND DINNER. TOLERATED WELL. HOWEVER, EXHIBITED SOME SIGNS OF SUN-DOWNING AND IN CONFUSION DC'D HER OWN MANSFIELD. ATTENDS WERE PLACED. IV FLUID IS ORDERED AND REPORT WAS GIVEN TO ELECTRONIC MAINTENANCE SUPERVISOR RN. NPO AFTER MIDNIGHT FOR SURGERY TOMORROW.
[2022-05-05 04:44] LABS: Hematocrit 31.5 % (33.0-51.0); Hemoglobin 10.2 g/dL (11.5-16.0); Mean Corpuscular HGB 32.3 pg (26.0-34.0); Mean Corpuscular HGB Conc 32.4 g/dL (31.5-36.5); Mean Corpuscular Volume 100 fL (80-100); Mean Platelet Volume 9.9 fL (9.1-12.4); Platelet Count 199 K/mm3 (150-400); RDW Coefficient Variation 12.7 % (11.7-14.2); RDW Standard Deviation 46.2 fL (35.1-46.3); Red Blood Cell Count 3.16 M/mm3 (3.80-5.20); White Blood Cell Count 6.82 K/mm3 (4.00-11.30)
[2022-05-05 05:11] LABS: Albumin, Blood 2.6 g/dL (3.4-5.0); Albumin/Globulin Ratio 0.9 (0.8-1.8); Bilirubin, Total 0.3 mg/dL (0.1-1.0); Bun/Creatinine Ratio 50.3 (12.0-20.0); Calcium, Blood 8.4 mg/dL (8.5-10.1); Creatinine, Blood 0.36 mg/dL (0.40-1.00); Potassium, Blood 3.9 mmol/L (3.5-5.5); Total Protein, Blood 5.6 g/dL (6.4-8.2)
--- NOTE | 2022-05-05 06:48 | NUR ---
SHIFT SUMMARY ASSUMED CARE AT 0200. NO ACUTE CHANGES, VSS. PT DID NOT REQUIRE PAIN COVERAGE. VOIDED 200 DARK/YELLOW AT SHIFT CHANGE. CALL LIGHT WITHIN REACH.
--- NOTE | 2022-05-05 14:54 | NUR ---
History, Chart, Medications and Allergies reviewed before start of procedure. Pre-Op teaching done. Pt verbalizes understanding. Patient confirms NPO status and agrees with scheduled surgery.
--- NOTE | 2022-05-05 19:46 | NUR ---
SHIFT SUMMARY PATIENT ALERT AND ORIENTED WITH MILD FORGETFULNESS IN AM. BEDREST WITH R HIP FX. WENT FOR SURGERY WITH DR ALLEN AT 1400. HR WAS CONTROLLED IN 90S. RETURNED FROM OR DROWSY, SOMEWHAT CONFUSED, AND REPORTING RIGHT HIP PAIN. RIGHT HIP WITH GAUZE AND COMPRESSION TAPE DRESSING. MEDICATED FOR PAIN WITH 25 MCG FENT. POST OP VSS. O2 AT 3L VIA NC KEEPING SATS ABOVE 90%. SLEEPING AFTER PAIN MEDICATION. PLAN FOR PT/OT TOMORROW 05/06/22. REPORT GIVEN TO LEAD APPLIER RN.
[2022-05-06 04:29] LABS: BASOPHILS ABSOLUTE AUTO 0.01 K/mm3 (0.00-0.23); BASOPHILS PERCENT AUTO 0 % (0-2); EOSINOPHILS PERCENT AUTO 0 % (0-6); Hematocrit 29.1 % (33.0-51.0); Hemoglobin 9.4 g/dL (11.5-16.0); IMMATURE GRAN ABSOLUTE AUTO 0.02 K/mm3 (0.00-0.10); IMMATURE GRAN PERCENT AUTO 0 % (0-1); LYMPHOCYTES ABSOLUTE AUTO 0.49 K/mm3 (0.84-5.20); LYMPHOCYTES PERCENT AUTO 7 % (21-46); MONOCYTES ABSOLUTE AUTO 0.47 K/mm3 (0.16-1.47); MONOCYTES PERCENT AUTO 6 % (4-13); Mean Corpuscular HGB 31.3 pg (26.0-34.0); Mean Corpuscular HGB Conc 32.3 g/dL (31.5-36.5); Mean Corpuscular Volume 97 fL (80-100); Mean Platelet Volume 10.3 fL (9.1-12.4); NEUTROPHILS ABSOLUTE AUTO 6.43 K/mm3 (1.96-9.15); NEUTROPHILS PERCENT AUTO 87 % (41-73); Platelet Count 199 K/mm3 (150-400); RDW Coefficient Variation 12.5 % (11.7-14.2); RDW Standard Deviation 44.4 fL (35.1-46.3); White Blood Cell Count 7.42 K/mm3 (4.00-11.30)
[2022-05-06 05:00] LABS: Bun/Creatinine Ratio 41.7 (12.0-20.0); Calcium, Blood 7.9 mg/dL (8.5-10.1); Creatinine, Blood 0.43 mg/dL (0.40-1.00); Potassium, Blood 4.5 mmol/L (3.5-5.5)
--- NOTE | 2022-05-06 07:06 | NUR ---
Patient awake and oriented x3. Roxicodone given x2 for pain. Denies tingiling in lower extremities. Patient had sandwhich for dinner and tolerated well.No questions or concerns at this time.
--- NOTE | 2022-05-06 15:28 | NUR ---
SHIFT SUMMARY: POD 1 RIGHT HIP NAILING PATIENT IS A&OX3 BUT IS COOPERATIVE AND CALM. SHE IS ALSO VERY [place]. HER RIGHT HIP HAS FOAM WITH GAUZE THAT IS C/D/I. DENIES NUMBNESS AND TINGLING IN ALL EXTREMITIES. SHE IS A SBA WITH FWW AND GAIT BELT TO THE CHAIR OR BSC. PAIN IS MANAGED WITH PO OXY. SHE IS TOLERATING PO INTAKE AND IS VOIDING. BOWEL CARE HAS BEEN INCREASED TO PO SENNA AND MIRALAX BUT HAS BEEN ON PO COLACE PRIOR. PATIENT IS ON HER BASELINE 3L NC OF OXYGEN WITH >90% OXYGEN SATS. CALLS APPROPRIATELY. CALL LIGHT WITHIN REACH. THE PLAN IS FOR HER TO POSSIBLY GO TO [facility] TOMORROW AND TO CONTINUE PAIN MANAGEMENT.
--- NOTE | 2022-05-07 04:14 | NUR ---
POD2 FOR RIGHT HIP NAILING. SENSATION AND CIRCULATION REMAIN INTACT IN RLE. DRESSING REMAINS C/D/I. VSS. PT SLEPT ALMOST THE ENTIRE SHIFT. MINIMAL PO INTAKE NOTED. PT AMBULATED TO THE [facility] AND HAD A LARGE VOID. NO BM'S NOTED, PT REFUSED PRN BOWEL CARE OVERNIGHT. MEDICATED FOR PAIN WITH PRN'S. PLAN FOR PT TO D/C TO [facility] TODAY. THE PATIENT IS CURRENTLY RESTING IN BED, IN NO DISTRESS. CALL LIGHT IN REACH.
[2022-05-07 06:04] LABS: BASOPHILS ABSOLUTE AUTO 0.02 K/mm3 (0.00-0.23); BASOPHILS PERCENT AUTO 0 % (0-2); EOSINOPHILS ABSOLUTE AUTO 0.12 K/mm3 (0.00-0.68); EOSINOPHILS PERCENT AUTO 2 % (0-6); Hematocrit 28.5 % (33.0-51.0); IMMATURE GRAN ABSOLUTE AUTO 0.02 K/mm3 (0.00-0.10); IMMATURE GRAN PERCENT AUTO 0 % (0-1); LYMPHOCYTES ABSOLUTE AUTO 1.19 K/mm3 (0.84-5.20); LYMPHOCYTES PERCENT AUTO 21 % (21-46); MONOCYTES ABSOLUTE AUTO 0.61 K/mm3 (0.16-1.47); MONOCYTES PERCENT AUTO 11 % (4-13); Mean Corpuscular HGB 30.9 pg (26.0-34.0); Mean Corpuscular HGB Conc 31.6 g/dL (31.5-36.5); Mean Corpuscular Volume 98 fL (80-100); Mean Platelet Volume 10.3 fL (9.1-12.4); NEUTROPHILS ABSOLUTE AUTO 3.81 K/mm3 (1.96-9.15); NEUTROPHILS PERCENT AUTO 66 % (41-73); Platelet Count 192 K/mm3 (150-400); RDW Standard Deviation 46.3 fL (35.1-46.3); Red Blood Cell Count 2.91 M/mm3 (3.80-5.20); White Blood Cell Count 5.77 K/mm3 (4.00-11.30)
[2022-05-07 06:24] LABS: Bun/Creatinine Ratio 46.7 (12.0-20.0); Calcium, Blood 8.2 mg/dL (8.5-10.1); Creatinine, Blood 0.41 mg/dL (0.40-1.00); Potassium, Blood 3.7 mmol/L (3.5-5.5)
[2022-05-07 13:00] LABS: SARS-Cov-2 (COVID-19) PCR, MMC NEGATIVE (NEGATIVE)
--- NOTE | 2022-05-07 16:10 | NUR ---
DISCHARGE PATIENT OK'D TO DISCHARGE TO [facility]. POD 2 GAMMA NAIL TO RIGHT HIP. X2 AQUACELS IN PLACE, C/D/I. 1P MIN ASSIST TO BSC & CHAIR. 25% WEIGHT BEARING TO RIGHT LEG. O2 SATS MAINTAING >92% ON 3L O2, WHICH IS ABSELINE FOR PATIENT. A&O X4. REPORT CALLED TO SHRAVAN @ [facility]. PACKET & EXTRA AQUACEL DRESSINGS SENT WITH PATIENT. TRANSPORTED BY W/C.
== END 2022-05-07 16:06 | DRG 481 ==
LOC: ER 06:31 → SURS 08:29
PROVIDERS: Emergency Medicine; Orthopaedic Surgery; ADMIT Internal Medicine
PROC: 3E02340 Introduction of Influenza Vaccine into Muscle, Percutaneous Approach (ICD-10-PCS; 2022-05-05)
PROC: 0QH634Z Insertion of Internal Fixation Device into Right Upper Femur, Percutaneous Approach (ICD-10-PCS; principal; 2022-05-05 15:30)
DX: S72.144A Nondisplaced intertrochanteric fracture of right femur, initial encounter for closed fracture (principal); J96.11 Chronic respiratory failure with hypoxia; Z68.1 Body mass index [BMI] 19.9 or less, adult; E78.5 Hyperlipidemia, unspecified; I25.10 Atherosclerotic heart disease of native coronary artery without angina pectoris; J44.9 Chronic obstructive pulmonary disease, unspecified; M81.0 Age-related osteoporosis without current pathological fracture; I48.91 Unspecified atrial fibrillation; W01.0XXA Fall on same level from slipping, tripping and stumbling without subsequent striking against object, initial encounter; R63.6 Underweight; Z98.84 Bariatric surgery status; Z90.710 Acquired absence of both cervix and uterus; Z90.49 Acquired absence of other specified parts of digestive tract; Z23 Encounter for immunization; Z98.890 Other specified postprocedural states; Z87.891 Personal history of nicotine dependence; Z88.5 Allergy status to narcotic agent; Z79.02 Long term (current) use of antithrombotics/antiplatelets; Z79.52 Long term (current) use of systemic steroids; Z79.899 Other long term (current) drug therapy; Z79.2 Long term (current) use of antibiotics; Z88.8 Allergy status to other drugs, medicaments and biological substances; Z20.822 Contact with and (suspected) exposure to COVID-19; Z96.659 Presence of unspecified artificial knee joint; Z79.51 Long term (current) use of inhaled steroids
CPT/HCPCS: 36415; 51702; 73502; 80048; 80053; 81001; 85025; 85027; 85610; 85730; 90686; 93005; 93010; 94640; 94664; 94760; 94762; 96374-59; 97110; 97162; 97166; 97530; 97535; 99285-25; A9270; C1713; J0690; J1100; J1650; J1720; J2250; J2370; J2405; J2704; J2765; J3010; J7030; J7120; U0004

== ENCOUNTER → 2023-09-26 | Outpatient (CLI) | payer OTHER ==
[~2023-09-26] MED LIST changes: +DULERA 100 MCG/13 GM INH
[2023-09-28 21:16] LABS: PANCREATIC ELASTASE,FECAL 460 ug/g (>=100)
[2023-09-29 08:41] LABS: FAT, FECAL - NEUTRAL Normal (Normal); FAT, FECAL - SPLIT Increased (Normal)
== END | disposition home or self-care (01) ==
LOC: LAB 11:00 → LAB SHORT 11:00
PROVIDERS: Physician Assistant
DX: E46 Unspecified protein-calorie malnutrition (principal); R00.2 Palpitations; R19.5 Other fecal abnormalities; R63.4 Abnormal weight loss
CPT/HCPCS: 82653; 82705

== ENCOUNTER 2024-06-25 21:13 | Inpatient (IN) | payer OTHER ==
[~2024-06-25] VITALS: Ht 152.4 cm; Wt 37.5 kg
[2024-06-25 22:02] LABS: Source, Urine Straight Cath
[2024-06-25 22:05] LABS: BASOPHILS ABSOLUTE AUTO 0.04 K/mm3 (0.00-0.23); BASOPHILS PERCENT AUTO 0 % (0-2); EOSINOPHILS ABSOLUTE AUTO 0.03 K/mm3 (0.00-0.68); EOSINOPHILS PERCENT AUTO 0 % (0-6); Hemoglobin 16.8 g/dL (11.5-16.0); IMMATURE GRAN ABSOLUTE AUTO 0.08 K/mm3 (0.00-0.10); IMMATURE GRAN PERCENT AUTO 1 % (0-1); LYMPHOCYTES ABSOLUTE AUTO 0.68 K/mm3 (0.84-5.20); LYMPHOCYTES PERCENT AUTO 7 % (21-46); MONOCYTES ABSOLUTE AUTO 0.53 K/mm3 (0.16-1.47); MONOCYTES PERCENT AUTO 6 % (4-13); Mean Corpuscular HGB 32.3 pg (26.0-34.0); Mean Corpuscular HGB Conc 29.8 g/dL (31.5-36.5); Mean Corpuscular Volume 109 fL (80-100); Mean Platelet Volume 10.3 fL (9.1-12.4); NEUTROPHILS ABSOLUTE AUTO 7.87 K/mm3 (1.96-9.15); NEUTROPHILS PERCENT AUTO 85 % (41-73); NRBC ABSOLUTE 0.02 K/mm3 (0.00-0.02); NRBC Auto 0.2 /100 WBC (0.0-0.2); Platelet Count 308 K/mm3 (150-400); RDW Coefficient Variation 15.6 % (11.7-14.2); RDW Standard Deviation 61.9 fL (35.1-46.3); White Blood Cell Count 9.23 K/mm3 (4.00-11.30)
[2024-06-25 22:18] LABS: Albumin, Blood 3.5 g/dL (3.4-5.0); Albumin/Globulin Ratio 1.1 (0.8-1.8); Bilirubin, Total 0.5 mg/dL (0.1-1.0); Bun/Creatinine Ratio 67.2 (12.0-20.0); Calcium, Blood 8.6 mg/dL (8.5-10.1); Creatinine, Blood 0.49 mg/dL (0.40-1.00); Globulin, Blood 3.3 g/dL (2.2-4.0); Hematocrit 56.4 % (33.0-51.0); Total Protein, Blood 6.8 g/dL (6.4-8.2)
[2024-06-25 22:18] LABS: Blood, Urine 1+ (Neg); Glucose Qualitative, Urine Neg (Neg); Ketones, Urine 1+ (Neg); Leukocyte Esterase, Urine 1+ (Neg); Nitrite, Urine Pos (Neg); Protein, Urine 3+ (Neg); Specific Gravity, Urine 1.025 (1.003-1.022); Urobilinogen, Urine 2+ (Normal); pH, Urine 6.5 (5.0-8.0)
[2024-06-25] MEDS ORDERED: NS 1,000 ML IV SCH (22:25)
[2024-06-25 22:27] LABS: Bilirubin, Urine 2+ (Neg)
[2024-06-25 22:28] LABS: Appearance, Urine Clear (Clear); Color, Urine Amber (P-Yellow)
[2024-06-25 22:29] LABS: Bacteria Mod /hpf; Red Blood Cells, Urine 0-2 /hpf (0-2); Squamous Epithelial Cells Mod /hpf (Few)
[2024-06-25 22:37] LABS: U Amphetamine Screen Not Detected; U Barbituate Screen Not Detected; U Benzodiazapine Screen Not Detected; U Buprenorphine Screen Not Detected; U Cannabinoids Screen DETECTED; U Cocaine Screen Not Detected; U Methadone Screen Not Detected; U Methamphetamine Screen Not Detected; U Opiates Screen Not Detected; U Oxycodone Screen Not Detected; U Phencyclidine Screen Not Detected
[2024-06-25 22:58] LABS: Thyroid Stimulating Hormone 0.772 uIU/mL (0.360-4.800)
[2024-06-25 23:21] LABS: Base Excess Venous 9.6 mmol/L; Bicarbonate Venous 28.6 mmol/L (24.0-30.0); PCO2 Venous 102 mmHg (38-42); pH Blood Venous 7.18 (7.34-7.37)
[2024-06-25 23:37] LABS: CORONAVIRUS COVID-19 AG Negative (NEGATIVE); INFLUENZA A AG Negative (NEGATIVE); INFLUENZA B AG Negative (NEGATIVE)
[2024-06-25] MEDS ORDERED: MethylPREDNISolone Sod Succ 125 MG Vial IV ONE (23:40)
[2024-06-26] VITALS (42 sets, daily range): BP systolic 70–129; BP diastolic 51–93
[2024-06-26] MEDS ORDERED: Albuterol 2.5 MG/3 ML VIAL INH SCH ×2 (00:20→02:25)
[2024-06-26] MEDS ORDERED: Ondansetron 4 MG TAB PO PRN (02:15)
[2024-06-26] MEDS ORDERED: Ipratropium/Albuterol SulF 2.5-0.5MG/3 ML Amp INH SCH (02:15)
[2024-06-26 02:17] LABS: Base Excess Venous 7.4 mmol/L; Bicarbonate Venous 27.4 mmol/L (24.0-30.0); PCO2 Venous 84.9 mmHg (38-42); pH Blood Venous 7.22 (7.34-7.37)
[2024-06-26] MEDS ORDERED: Mometasone/Formoterol MDI 200/5 mcg 13 GM INH SCH (02:45)
[2024-06-26] MEDS ORDERED: CefTRIAXone Sodium 1,000 MG in NS 100 ML IV SCH (02:47)
[2024-06-26] MEDS ORDERED: Tiotropium Bromide 2.5 MCG/ACT MIST INHAL (10 ACT/4 GM) INH SCH (04:10)
[2024-06-26] MEDS ORDERED: Albuterol 2.5 MG/3 ML VIAL INH PRN (04:10)
[2024-06-26 05:26] LABS: Hematocrit 52.2 % (33.0-51.0); Hemoglobin 15.9 g/dL (11.5-16.0); Mean Corpuscular HGB 33.3 pg (26.0-34.0); Mean Corpuscular HGB Conc 30.5 g/dL (31.5-36.5); Mean Corpuscular Volume 109 fL (80-100); Mean Platelet Volume 10.1 fL (9.1-12.4); Platelet Count 273 K/mm3 (150-400); RDW Coefficient Variation 15.3 % (11.7-14.2); RDW Standard Deviation 61.9 fL (35.1-46.3); Red Blood Cell Count 4.78 M/mm3 (3.80-5.20); White Blood Cell Count 9.59 K/mm3 (4.00-11.30)
[2024-06-26 05:53] LABS: Albumin, Blood 3.2 g/dL (3.4-5.0); Albumin/Globulin Ratio 1.1 (0.8-1.8); Bilirubin, Total 0.4 mg/dL (0.1-1.0); Calcium, Blood 7.6 mg/dL (8.5-10.1); Creatinine, Blood 0.47 mg/dL (0.40-1.00); Globulin, Blood 2.9 g/dL (2.2-4.0); Total Protein, Blood 6.1 g/dL (6.4-8.2)
[2024-06-26] MEDS ORDERED: MethylPREDNISolone Sod Succ 125 MG Vial IV ONE (06:00)
[2024-06-26] MEDS ORDERED: MethylPREDNISolone Sod Succ 125 MG Vial IV SCH ×2 (06:00→18:00)
--- NOTE | 2024-06-26 08:43 | NUR ---
Arrival to PCU- Patient arrived to PCU via gurney, she is on 6l via WI. She is able to open her eyes, and tell me her first and last name. She isn't able to follow commands, but is able to reposition herself in bed when needed. HRR, she is SR in the 90s. LS DIM T/O, biox is high 90s on 6l via WI, once her bath and oral care was done we transitioned her over to her Bi-pap settings 16/6 FIO2 35%.Biox remains in the mid 90s. BT hypoactive. She has 2+ pitting edema to BLE. Bilat-toes and heels are dusky, cap refill 6 seconds, not able to obtain pulses with Doppler. senior clerk Olena attempted also and was not able to find a pulse. She has a stage 2 pressure ulcer on her coccyx, Mepliex placed and patient was repositioned. VSS. Bed alarm on for safety. Call light in reach.
[2024-06-26] MEDS ORDERED: Thiamine HCl 100 MG Tab PO SCH (09:00)
[2024-06-26] MEDS ORDERED: Enoxaparin 30 MG/0.3 ML SYR SC SCH (09:00)
[2024-06-26] MEDS ORDERED: Carvedilol 3.125 MG Tab PO SCH (09:00)
[2024-06-26] MEDS ORDERED: Docusate Sodium 100 MG Cap PO SCH (09:00)
[2024-06-26] MEDS ORDERED: Lactobacil 2-S.Thermo-Bifido 1 1 Cap PO SCH (09:00)
[2024-06-26] MEDS ORDERED: COMBIVENT RESPIM4 G1 INH (10:49)
[2024-06-26 11:09] LABS: Base Excess Venous 8.4 mmol/L; Bicarbonate Venous 28.5 mmol/L (24.0-30.0); PCO2 Venous 84.1 mmHg (38-42); pH Blood Venous 7.24 (7.34-7.37)
[2024-06-26] MEDS ORDERED: dexmedeTOMIDine 100 ML IV SCH (12:05)
--- NOTE | 2024-06-26 12:23 | NUR ---
Update: Call placed to the family to clarify code status, the Niece and Ex- are making the patient a DNR. They would like to try some Bi-Pap and IV nutrition if necessary to see if the patient will turn around. Dr. Mclain is at the bedside, we are not making much progress on her CO2 its still above 80. Pulm consult was placed, Dr. Boland was in the hallway this patient was discussed with him. He came to see her, the patient ripped her Bi-Pap off and was trying to sit at the edge of the bed. She was assisted back to bed. Bi-Pap is back in place. MD would like to try her on some precedex so she can tolerate the Bi-Pap easier. MD called and talked with family regarding plan. Patient was transferred to ICU 08-report given to Jese [employer].
[2024-06-26] MEDS ORDERED: Enoxaparin 30 MG/0.3 ML SYR SC ONE (12:25)
--- NOTE | 2024-06-26 12:29 | NUR ---
CAR ASSUMPTION PT TRANSFERED ROM PCU TO ICU 8. ON ARRIVAL PT OPENS EYES WHEN PROMPTED BUT DOES NT COMMUNICATE APPROPRIATELY W STAFF WHEN ASKED QUESTIONS. PT ATTEMPTING TO REMOVE BIPAP MASK AND DOES NOT RESPOND TO REDIRECTION. MONITOR SHOWING ST 100'S. BP WNL. SPO2 >90% ON BIPAP 14/6 W 40% FI02. DR. THOMPSON ORDERING 1HR LNG BREATHING TX AND PRECEDEX GTT. PT DNR/DNI PER DR. NAYLOR WH SPOKE TO PT'S FAMILY.
[2024-06-26] MEDS ORDERED: Albuterol 2.5 MG/3 ML VIAL INH ONE (13:00)
[2024-06-26 14:07] LABS: Base Excess Venous 7.7 mmol/L; Bicarbonate Venous 28.2 mmol/L (24.0-30.0); PCO2 Venous 77.3 mmHg (38-42)
[2024-06-26 14:08] LABS: pH Blood Venous 7.26 (7.34-7.37)
[2024-06-26] MEDS ORDERED: Morphine Sulfate 10 MG/ML 1MLSYR ONE (15:37)
[2024-06-26] MEDS ORDERED: Morphine Sulfate 10 MG/ML 1MLSYR IV PRN (15:45)
--- NOTE | 2024-06-26 15:56 | NUR ---
UPDATE PT'S BP CONTINUED TO DROP ON PRECEDEX GTT SO GTT TITRATED DOWN AND EVENTUALLY PLACED ON STAND-BY DUE TO LOW BP. PT AWOKE A SHORT TIME LATER IN A PANIC PULLING OFF HER BIPAP. PT FIGHTING STAFF NOT LETTING STAFF PLACE THE BIPAP BACK N. PT VERY DYSPNEIC DURING THIS EVENT AND DR. NAYLOR COMING TO BEDISDE HAVING STAFF GIVE HER 5 MG IV MORPHINE. PT WAS ASISTED TO THE SIDE OF THE BED AT THIS TIME TO TRIPOD.AFTER MRPHIN ADMINISTRATION PT RELAXED BUT CONTINUED TO REFUSE BIPAP. PT PLACED ON 2L NC. FAMILY CALLED BY DR. NAYLOR AND UPDATED.
[2024-06-26] MEDS ORDERED: Azithromycin 500 MG in NS 250 ML IV SCH (16:00)
--- NOTE | 2024-06-26 16:21 | NUR ---
UPDATE DR. NAYLOR SPEAKING W FAMILY UPDATING THEM ON PT'S CONDITION. DR. NAYLOR STATING THAT WE WILL NOT FORCE THE PT TO WEAR THE BIPAP AND WE WILL USE MORPHINE LIBERALLY TO KEEP PT COMFORTABLE. FAMILY AGREEING TO PLAN.
--- NOTE | 2024-06-26 16:38 | NUR ---
PC INITIAL VISIT: PT IN RESPIRATORY DISTRESS ON ENTERING PT ROOM. SHE HAS BIPAP ON BUT SHE IS ATTEMPTING TO REMOVE, GRABBING AT MASK. BS RN WITH PT AND IS ATTEMPTING TO CALM PT AND KEEP PT FROM TAKING HER BIPAP MASK OFF. PT WAS ALSO ATTEMPTING TO TRIPOD AND SWINGING LEFT LEG OUT OF BED. DR. NAYLOR ARRIVED AT BEDSIDE AND ORDERED PT MORPHINE 5 MG IV Q30 MINUTS PRN FOR AIR HUNGER. ORDER PLACED. PT DID BECOME VISIBLY COMFORTABLE AND WAS ABLE TO REST WITH O2 AT 2 LPM VIA NC WITH SATS AT 88-90%. PT FAMILY CALLED. FRIEND DONA ARRIVED 15 MINUTES LATER WITH PT ADOPTED DAUGHTER. DR. NAYLOR EXPLAINED SITUATION TO OTHER DAUGHTER OVER THE PHONE AND FAMILY HERE IN ROOM. FAMILY ARE ACCEPTING OF POC TO TREAT AIR HUNGER WITH MORPHINE DESPITE KNOWING THIS MAY NOT HELP TO PROLONG LIFE BUT WILL KEEP PT COMFORTABLE. POC IS TO CONTINUE LIFE SAVING MEDICATIONS AND MORPHINE NEEDED FOR COMFORT. DONA REPORTED THEY HAD BEEN CONSIDERING HOSPICE SERVICES ONE WEEK PRIOR TO HER COMING TO HOSPITAL. COMFORT MEASURES EXPLAINED TO DONA AND DAUGHTER PRESENT. THEY ARE ACCEPTING OF COMFORT MEASURES IF IT IS NECESSARY.
--- NOTE | 2024-06-26 18:10 | NUR ---
DAY SHIFT SUMMARY AFTER PT WAS BROUGHT TO ICU SHE TOOLERATED BIPAP FOR A FEW HOURS W PRECEDEX GTT INFUSING HOWEVER THE PRECEDEX GTT WAS TITRATED OFF AFTER HER BP CONTINUED TO DROP. PT AWOKE AND BEGAN THRASHING IN BED TAKING OFF HER BIPAP MASK GOING INTO WORSENING RESP DISTRESS. DECESION MADE BY DR. NAYLOR TO GIVE THE PT IV MORPHINE WHICH HELP RELIEVE HER RES DISTRESS AND AFTER SHE STILL REFUSED BIPAP TO NOT TRY AND MAKE HER WEAR IT. PT HAS MAINTAINED SPO2 >90% ON 3L NC AND STILL APPEARING COMFORTABLE AFTER THE FIRST DOSE OF MORPHINE. DR. NAYLOR EXPRESSING TO FAMILY THAT WE WILL NOT BE ESCALATING CARE AND WHILE SHE IS NOT COMFORT CARE WE WILL USE IV MORPHINE TO KEEP HER FROM EXACERBATED RESPIRATORY DISTRESS. FAMILY AGREEING TO THE PLAN AND PALLIATIVE CARE RN INVOLVED IN THIS DISCCUSSION. PT RESTING COMFORTABLY AT THIS TIME W MULTIPLE FAMILY AT BEDSIDE. MONITOR SHOWING SR 90'S. BP IS SOFT BUT MAINTAINING MAP >65. IV'S ARE SALINE LOCKED AND PT IN NO DISTRESS AT THIS TIME. WILL REPORT TO ONCOMING RN.
[2024-06-26] MEDS ORDERED: Mirtazapine 15 MG Tab PO SCH (21:00)
[2024-06-26] MEDS ORDERED: Atorvastatin 10 MG Tab PO SCH (21:00)
[2024-06-27] VITALS (26 sets, daily range): BP systolic 82–128; BP diastolic 57–81
--- NOTE | 2024-06-27 02:41 | NUR ---
UPDATE ASSUMED CARE OF PT AT 1900, PT IN BED WITH HOB UP 90 DEGREES, O2 AT 3 LPM NC, OPENS EYES AND PULLS AWAY FROM PAINFUL/TACTILE STIMULI,DOES NOT FOLLOW COMMANDS OR ANSWER TO VERBAL CUES OR NAME, SR 90s, SBP 90-110s WITH MAP >65,SHALLOW RESPIRATIONS NOTED WITH JVD DISTENTION, FAINT RADIAL PULSES, DOPPLER PEDAL PULSES WITH +2/+3 PITTING EDEMA TO SARTHAK FEET AND SARTHAK FEET COLD, DUSKY WITH PURPLE TOES, LEFT TIBIAL PULSE DOPPLER FOUND NOT PEDAL, SKIN PALE, 2027, PT AWAKENS GASPING FOR AIR, TACHYPNEIC, PULLING OFF NC, ROCKING BACK AND FORTH WITH ARMS FLAILING OUT AND ENDING IN TRIPOD POSITION, MEDICATED WITH MORPHINE 5 MG FOR AIR HUNGER.MORHPINE EFFECTIVE MEDICATED X3 MORE TIMES FOR AIR HUNGER THIS SHIFT SO FAR, PLACED ON HFNC AT 35% FIO2 AND 30 LPM,REMAINS WITH HOB UP 90 DEGREES AND OCCASIONALLY IN TRIPOD POSITION BRIEF CHECKED EVERY 2 HOURS WITH NO OUTPUT NOTED THIS SHIFT, BLADDER SCAN DONE AT 0200 WITH 409 ML NOTED, CALLED AND SPOKE WITH MD REGARDING PT INABILITY TO LAY FLAT AND DESATURATION WITH POSITION CHANGES, NEW ORDER RECEIVED FOR MANSFIELD CATH INSERTION. 0230 16 FR MANSFIELD CATH PLACED WITH STERILE TECHNIQUE WITHOUT DIFFICULTY, 450 ML ALEX URINE RETURNED IMMEDIATELY
[2024-06-27 04:09] LABS: Hemoglobin 16.5 g/dL (11.5-16.0); Mean Corpuscular HGB 33.1 pg (26.0-34.0); Mean Corpuscular HGB Conc 29.3 g/dL (31.5-36.5); Mean Corpuscular Volume 113 fL (80-100); NRBC ABSOLUTE 0.03 K/mm3 (0.00-0.02); NRBC Auto 0.3 /100 WBC (0.0-0.2); Platelet Count 362 K/mm3 (150-400); RDW Coefficient Variation 15.5 % (11.7-14.2); RDW Standard Deviation 64.7 fL (35.1-46.3); Red Blood Cell Count 4.98 M/mm3 (3.80-5.20); White Blood Cell Count 11.95 K/mm3 (4.00-11.30)
[2024-06-27] MEDS ORDERED: Naloxone HCl 0.4MG / ML 1ML Vial ONE (04:12)
[2024-06-27 04:14] LABS: Hematocrit 56.3 % (33.0-51.0)
[2024-06-27] MEDS ORDERED: Naloxone HCl 0.4MG / ML 1ML Vial IV ONE (04:15)
[2024-06-27 04:22] LABS: Base Excess Venous 3.9 mmol/L; Bicarbonate Venous 21.7 mmol/L (24.0-30.0); PCO2 Venous > 105 mmHg (38-42); pH Blood Venous 6.91 (7.34-7.37)
--- NOTE | 2024-06-27 04:27 | NUR ---
UPDATE 0410 PT NONRESPONSIVE TO PAINFUL STIMULI WITH NOTED SHALLOW AGONAL RESPIRATIONS, RT AT BEDSIDE WITH FIO2 INCREASED TO 100% AND O2 SAT 80%, CALLED MD TO BEDSIDE, DR MALIN AT BEDSIDE WITH ORDERS RECEIVED, 0415 VBG DRAWN AND PT GIVEN 0.4 MG NARCAN IVP AND PLACED ON BIPAP FIO2 45 %, 04/12. NARCAN MINIMALLY EFFECTIVE WITH PT WITHDRAWING FROM PAIN AND INCREASED RESPIRATIONS NOTED. 0430 VBG RESULTS RECEIVED WITH PH 6.9 AND CO2 >105
[2024-06-27 04:46] LABS: Albumin, Blood 3.7 g/dL (3.4-5.0); Anion Gap 4 mmol/L (3-11); Blood Urea Nitrogen 44 mg/dL (8-24); Bun/Creatinine Ratio 64.6 (12.0-20.0); CO2, Blood 38 mmol/L (21-32); Calcium, Blood 7.4 mg/dL (8.5-10.1); Chloride, Blood 101 mmol/L (98-108); Creatinine, Blood 0.68 mg/dL (0.40-1.00); Glomerular Filtration Rate 90 (60-); Glucose, Blood 164 mg/dL (70-99); Phosphorus, Blood 7.7 mg/dL (2.5-4.9); Potassium, Blood 6.2 mmol/L (3.5-5.5); Sodium, Blood 137 mmol/L (136-145)
[2024-06-27] MEDS ORDERED: Insulin Regular 100 UNIT/ML 10ML Vial IV ONE (06:00)
[2024-06-27] MEDS ORDERED: Dextrose 50% 50 ML Vial IV ONE (06:00)
[2024-06-27] MEDS ORDERED: CALCIUM GLUC IN NACL, ISO-OSM 50 ML IV ONE ×2 (06:15→10:00)
--- NOTE | 2024-06-27 06:39 | NUR ---
UPDATE 044 POTASSIUM 6.2, PH 6.9, CO2 >105, PT NOW ON BIPAP FIO2 45% 04/12 NOTIFIED MD WITH NEW ORDERS RECEIVED, 5 UNITS REGULAR INSULIN, CALCIUM GLUCONATE AND D50 GIVEN IV PER ORDERS, PT REMAINS NONRESPONSIVE TO ALL STIMULI, SBP 80s WITH MAP >65, CALLED CONTACT DONA WITH NO ANSWER TO UPDATE ON PT DECLINING CONDITION.
--- NOTE | 2024-06-27 09:12 | NUR ---
CARE ASSUMPTION DURING BEDSIDE SHIFT W AMIRA RN THE PT IS LYING BED WEARING THE BIAP MASK. THE PT DOES NOT RESPOND TO PHYSICAL OR VERBAL STIMULI WHICH IS UNCHANGED PER NOC RN. PT'S MONITOR SHOWING ST 100-110. BP SOFT BUT STABLE MAP >65. RT ADJUSTING BIPAP SETTINGS DUE TO LOWER TIDAL VOLUMES. PT'S FAMILY CALLING AND THIS RN SPOKE W PT'S NIECE NAVYA WHO WAS UPDATED ON THE PT'S DECLINING CONDITION. PT'S NIECE EXPRESSING INTENT ON CALLING FAMILY MEMBERS AND COMING TO THE HOSPITAL THIS AM.
[2024-06-27 09:37] LABS: Bun/Creatinine Ratio 56.4 (12.0-20.0); Calcium, Blood 7.9 mg/dL (8.5-10.1); Creatinine, Blood 0.89 mg/dL (0.40-1.00); Potassium, Blood 5.7 mmol/L (3.5-5.5)
[2024-06-27] MEDS ORDERED: Atropine Sulfate 1% Opth Soln 2ML BTL SL PRN (12:25)
[2024-06-27] MEDS ORDERED: Morphine Sulfate 20 MG/1ML 1 ML Oral Syringe SL PRN (12:25)
[2024-06-27] MEDS ORDERED: Morphine Sulfate 10 MG/ML 1MLSYR IV PRN (12:25)
[2024-06-27] MEDS ORDERED: LORazepam 2 MG/ML 1ML Injection IV PRN (12:25)
[2024-06-27] MEDS ORDERED: Scopolamine Hydrobromide Patch TOP PRN (12:25)
--- NOTE | 2024-06-27 13:07 | NUR ---
Spiritual care visit. Pts. SO came out of rrom concern that the Pt. was displaying agitation. When this station attendant responded the Pt. was resting comfortably. This station attendant took the oppotunity to introduce himself to the family. SO verbalized gratitude for the spiritual care support.
--- NOTE | 2024-06-27 14:40 | NUR ---
"Spiritual Care | Comfort Care This chaplainis present as Pt. is liberated form her Bi-Pap mask. Palliative Care and the attending nurse are present. Prayed a blessing over the Pt. and family. Facilitated the families anticipatory grief, encouraging memories of the Pt. During the course of this long visit the family mentioned that the Pt. wished to donate her body to science, and that they have chosen [facility] in [place] to collect the Pt. kareem DAVILA."
--- NOTE | 2024-06-27 16:38 | NUR ---
PALLIATIVE CARE NOTE: NOTIFIED THIS MORNING BY PRIMARY RN PT FAMILY HAS DECIDED TO PLACE [facility] ON COMFORT MEASURES. AWAITED ALL FAMILY MEMBERS TO ARRIVE PRIOR TO PLACING CM ORDERS SO FAMILY HAVE TIME TO VISIT WITH [facility] PRIOR TO REMOVING BIPAP. ONCE FAMILY GATHERED AND GAVE PERMISSION COMFORT MEDICATIONS WERE GIVEN AND BIPAP REMOVED AFTER WAITING FOR MEDICATIONS TO BE EFFECTIVE. PT HAS CONTINUED TO BREATH EVEN WITH SOME OFF AND ON LABORED EVENTS. CURRENTLY PT SATS ARE 53-54% ON ROOM AIR. PT HAS VERY LITTLE SIGNS OF AIR HUNGER. PT HAS REMAINED CALM AND HAS NOT WOKEN UP SINCE BIPAP REMOVED. FAMILY HAS BEEN AT BEDSIDE. EMOTIONAL/MORAL SUPPORT GIVEN. FAMILY APPEAR TO BE COPING WELL, THEY ARE REMINSCENT OF THEIR TIME WITH [facility]. OFFERED TO FINGERPRINT AND PROVIDE LOCKET OF HAIR TO FAMILY WHICH THEY WERE GRATEFUL FOR. PT CONTINUES TO APPEAR TO BE COMFORTABLE WITH NO S/S OF DISTRESS.
--- NOTE | 2024-06-27 18:26 | NUR ---
DAY SHIFT SUMMARY PT TRANSITIONED TO COMFORT CARE BY DR. CROFT PER FAMILY REQUEST. PT RESTING COMFORTABLY W FAMILY AT BEDSIDE SINCE BIPAP REMOVED. MANSFIELD PATENT AND DRAINING TO GRAVITY. PT AFEBRILE. PT GIVEN COMFORT CARE MEDICATIONS PRN AND APPEARS VERY COMFORTABLE.
--- NOTE | 2024-06-27 22:12 | NUR ---
UPDATE 2210 NO RESPIRATIONS OR HEART BEAT NOTED,FAMILY AT BEDSIDE, MASOOD Epperson RN VERIFIED NO HEART BEAT OR RESPIRATIONS
--- NOTE | 2024-06-27 22:14 | NUR ---
UPDATE ASSUMED CARE OF PT AT 1900, PT UNRESPONSIVE TO VERBAL OR TACTILE STIMULI, FAMILY AT BEDSIDE, CONTINUED WITH COMFORT CARE, MEDICATED WITH PRN MEDS PER EMAR FOR AIR HUNGER, ANXIETY AND COMFORT
== END 2024-06-27 22:11 | DRG 189 ==
LOC: ER 21:13 → ERHOLD 06-26 02:10 → ICUE 06-26 02:10 → EDBEDREQ 06-26 02:49 → EDBEDREQSVC 06-26 02:51 → EDBEDREQ 06-26 02:52 → PCU 06-26 08:44 → ICUE 06-26 11:59
PROVIDERS: Emergency Medicine; Family Medicine; Student in an Organized Health Care Education/Training Program; ADMIT Internal Medicine
PROC: 5A09357 Assistance with Respiratory Ventilation, Less than 24 Consecutive Hours, Continuous Positive Airway Pressure (ICD-10-PCS; principal; 2024-06-26)
PROC: 3E03329 Introduction of Other Anti-infective into Peripheral Vein, Percutaneous Approach (ICD-10-PCS; 2024-06-26)
DX: J96.21 Acute and chronic respiratory failure with hypoxia (principal); G92.8 Other toxic encephalopathy; J18.9 Pneumonia, unspecified organism; J44.1 Chronic obstructive pulmonary disease with (acute) exacerbation; E87.29 Other acidosis; J44.0 Chronic obstructive pulmonary disease with (acute) lower respiratory infection; Z66 Do not resuscitate; Z51.5 Encounter for palliative care; E87.5 Hyperkalemia; D72.829 Elevated white blood cell count, unspecified; J43.9 Emphysema, unspecified; J96.22 Acute and chronic respiratory failure with hypercapnia; R40.0 Somnolence; M81.0 Age-related osteoporosis without current pathological fracture; I25.10 Atherosclerotic heart disease of native coronary artery without angina pectoris; E78.5 Hyperlipidemia, unspecified; Z96.641 Presence of right artificial hip joint; F10.10 Alcohol abuse, uncomplicated; Z96.659 Presence of unspecified artificial knee joint; Z99.81 Dependence on supplemental oxygen; Z85.41 Personal history of malignant neoplasm of cervix uteri; Z88.5 Allergy status to narcotic agent; Z79.899 Other long term (current) drug therapy; Z90.710 Acquired absence of both cervix and uterus; Z90.49 Acquired absence of other specified parts of digestive tract; Z98.890 Other specified postprocedural states; Z79.52 Long term (current) use of systemic steroids
CPT/HCPCS: 51702; 70450; 71045; 80048; 80053; 80069; 81001; 82140; 82550; 82803; 82947; 83735; 83880; 84145; 84443; 84484; 85025; 85027; 87086; 87428-QW; 93005; 93010; 94640; 94644; 94660; 94664; 94762; 96374; 99285-25; A9270; J0456; J0612; J0696; J1650; J1815; J2060; J2270; J2310; J2919; J7030; J7050; J7799